=== PATIENT | male | born 1965 | race Caucasian/White ===

== ENCOUNTER 2017-08-31 14:40 | Observation (INO) | payer SELFPAY ==
[2017-08-31] MEDS ORDERED: Nitroglycerin 0.4 MG Tab.SL SL ONE (14:50)
[2017-08-31] MEDS ORDERED: Sodium Chloride 0.9% 2.5 ML Syringe FLUSH PRN (14:50)
[2017-08-31] MEDS ORDERED: Aspirin 81 MG Tab.Chew PO ONE (14:50)
[2017-08-31] MEDS ORDERED: Sodium Chloride 0.9% 10 ML Syringe FLUSH PRN (14:50)
[2017-08-31] MEDS ORDERED: Morphine 2 MG/ML Syringe IVPUSH ONE ×2 (14:52→16:16)
--- NOTE | 2017-08-31 14:55 | EDM.PDOC ---
ED HPI GENERAL MEDICAL PROBLEM - General Chief Complaint: Chest Pain Stated Complaint: CHEST PAIN Time Seen by Provider: 08/31/17 14:43 - History of Present Illness INITIAL COMMENTS - FREE TEXT/NARRATIVE: HISTORY AND PHYSICAL: History of present illness: Patient is a 52-year-old male who follows in our clinic with the nurse practitioner who he has seen about 6 months ago and has a history of borderline diabetes as well as obesity and sleep apnea an admission in May 2016 for atypical chest pain and presents with complaints of epigastric pain/lower midsternal pain that radiates to his right upper quadrant and his back that started about 3:57 AM this morning. The patient ate a sausage for dinner last night and went to bed and was having a perfectly normal evening. He says he tossed and turned through the night because of some discomfort but the pain woke him from sleep at about 3:57 AM. He had no fevers chills shortness of breath nausea or vomiting. Patient says he does have a history of his "gallbladder being shot". After his admission in May 2016 for chest pain he did not follow-up with a stress test. He says his last stress test was about 8 years ago and it was normal. He has no leg pain or swelling. He last ate today about 6 hours ago, only a muffin. The patient smokes a cigarettes and denies drug use and has no family history of cardiac disease. He currently takes no prescription medications. He has no leg pain or swelling. He currently does not feel short of breath and he describes his discomfort as a deep aching pain it is not burning in character. Patient also adds to nursing later that he is in remission from his rheumatoid arthritis. Review of systems: As per history of present illness and below otherwise all systems reviewed and negative. Past medical history: As per history of present illness and as reviewed below otherwise noncontributory. Surgical history: As per history of present illness and as reviewed below otherwise noncontributory. Social history: No reported history of drug or alcohol abuse. Family history: As per history of present illness and as reviewed below otherwise noncontributory. Physical exam: General: Well-developed well-nourished man who is nontoxic and morbidly obese. He looks comfortable in the ED and is not diaphoretic. Vital signs are noted by me HEENT: Atraumatic, normocephalic, pupils reactive, negative for conjunctival pallor or scleral icterus, mucous membranes moist, throat clear, neck supple, nontender, trachea midline. Lungs: Clear to auscultation, breath sounds equal bilaterally, chest nontender. Heart: S1S2, regular, negative for clicks, rubs, or JVD. Abdomen: Soft, nondistended, patient has tenderness on palpation in the epigastrium and the right upper quadrant which mimics his pain. There is no rebound or guarding. L sounds are hypoactive Negative for masses or hepatosplenomegaly. Pelvis: Stable nontender. Genitourinary: Deferred. Rectal: Deferred. Extremities: Atraumatic, negative for cords or calf pain. Neurovascular unremarkable. No pedal edema Neuro: Awake, alert, oriented. Cranial nerves II through XII unremarkable. Cerebellum unremarkable. Motor and sensory unremarkable throughout. Exam nonfocal. Diagnostics: EKG chest x-ray CBC CMP amylase lipase INR troponin abdominal ultrasound H pylori Therapeutics: IV O2 monitor nitroglycerin 1 aspirin morphine Zosyn The patient is aware of all testing results and that we will proceed to do a CT scan of the abdomen and pelvis. The case was discussed with Dr. Coyne at 1630 3 PM and he has done a colonoscopy on this patient in the past. Dr. Coyne recommends a CT scan to be done and he will swing by after his clinic and evaluate the patient. The patient is aware of the elevated white blood cell count and the H. pylori positive status. 1820: Dr. Coyne had seen and evaluated the patient earlier and the CT scan results were relayed to him at this time. He is unclear as to what is causing the patient's pain and leukocytosis and he would like the hospitalist to admit and we will give a dose of Zosyn and he will be on consult to see how the patient progresses over the next 12-24 hours. I discussed this care plan with the patient. I will also discuss this with the hospitalist for admission 1825: Case was discussed with Dr. Guadalupe our hospitalist who agrees to observation admission and is aware of the care plan. Impression: Epigastric pain/right upper quadrant pain with leukocytosis etiology unclear, rule out acalculus cholecystitis; H. pylori positive Definitive disposition and diagnosis as appropriate pending reevaluation and review of above. Middle Chest Pain Score (Numeric/FACES): 10 - Related Data Allergies Allergy/AdvReac Type Severity Reaction Status Date / Time Latex, Natural Rubber Allergy Swelling Verified 08/31/17 14:59 minocycline Allergy tinnitus Verified 08/31/17 14:59 Home Meds: Home Meds Allopurinol [Zyloprim] 300 mg PO DAILY 07/26/14 [History] Aspirin [Children's Aspirin] 2 tab PO DAILY 07/26/14 [History] Naproxen Sodium [Aleve] 220 mg PO ASDIRECTED PRN 07/26/14 [History] DULoxetine [Cymbalta] 60 mg PO DAILY 08/31/17 [History] buPROPion [buPROPion XL] 150 mg PO DAILY 08/31/17 [History] Past Medical History HEENT History: Reports: Other (See Below) Other HEENT History: 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 Denies: Blood Clots/VTE/DVT, CAD, Heart Failure, High Cholesterol, Hypertension, CT Respiratory History: Reports: Sleep Apnea Other Respiratory History: Former smoker, Sleep Apnea with machine Gastrointestinal History: Reports: Colon Polyp Genitourinary History: Reports: None. Denies: Acute Renal Failure, Chronic Renal Insuffiency Other Genitourinary History: Epididymitis, Left Musculoskeletal History: Reports: Fracture, Gout, RA Other Musculoskeletal History: "hx: fracture wrist as a kid" Neurological History: Reports: None. Denies: CVA, MS, TIA Psychiatric History: Reports: Anxiety Endocrine/Metabolic History: Reports: Diabetes, Type II, Obesity/BMI 30+ Other Endocrine/Metabolic History: borderline DM Hematologic History: Reports: None Immunologic History: Reports: None Oncologic (Cancer) History: Reports: None Dermatologic History: Reports: Other (See Below) Other Dermatologic History: Current hx: ring worm Right Thigh, topical treatment - Infectious Disease History Infectious Disease History: Reports: None - Past Surgical History Head Surgeries/Procedures: Reports: None GI Surgical History: Reports: Colonoscopy Social & Family History - Family History Family Medical History: Noncontributory HEENT: Reports: Impaired Vision Musculoskeletal: Reports: Arthritis Psychiatric: Reports: Anxiety, Depression Oncologic: Reports: Breast, Colon, Pancreatic - Caffeine Use Caffeine Use: Reports: Energy Drinks, Soda - Living Situation & Occupation Living situation: Reports: with Significant Other Occupation: Employed ED ROS GENERAL - Review of Systems Review Of Systems: ROS reveals no pertinent complaints other than HPI. ED EXAM, GENERAL - Physical Exam Exam: See Below (See dictation) Course - Vital Signs Last Recorded V/S: Last Vital Signs Temp 36.7 C 08/31/17 14:44 Pulse 75 08/31/17 14:44 Resp 20 08/31/17 14:44 BP 190/102 H 08/31/17 15:01 Pulse Ox 98 08/31/17 14:44 - Orders/Labs/Meds Orders: Active Orders 24 hr Category Date Time Status Patient Status [ADT] Stat ADT 08/31/17 18:28 Ordered Cardiac Monitoring [RC] . DIRECTED Care 08/31/17 14:49 Active EKG Documentation Completion [RC] STAT Care 08/31/17 14:49 Active Notify Provider Consults [RC] ASDIRECTED Care 08/31/17 18:22 Ordered Oxygen Therapy, ED [RC] ASDIRECTED Care 08/31/17 14:49 Active Pulse Oximetry [RC] ASDIRECTED Care 08/31/17 14:49 Active Consult to Physician [CONS] Stat Cons 08/31/17 18:22 Ordered Abdomen Pelvis w Cont [CT] Stat Exams 08/31/17 16:35 Taken Lactated Ringers @ 150 MLS/HR(1,000ml) Med 08/31/17 18:30 Ordered Lactated Ringers [Ringers, Lactated] 1,000 ml IV ASDIRECTED Piperacillin/Tazobactam [Piperacil-Tazobact] 4.5 gm Med 08/31/17 18:21 Ordered Sodium Chloride 0.9% [Normal Saline] 100 ml IV ONETIME Sodium Chloride 0.9% [Saline Flush] Med 08/31/17 14:50 Active 10 ml FLUSH ASDIRECTED PRN Sodium Chloride 0.9% [Saline Flush] Med 08/31/17 14:50 Active 2.5 ml FLUSH ASDIRECTED PRN Saline Lock Insert [OM.PC] Stat Oth 08/31/17 14:49 Ordered Medication Orders Piperacillin Sod/Tazobactam (Sod 4.5 gm/ Sodium Chloride) 100 mls @ 100 mls/hr IV ONETIME ONE Stop: 08/31/17 19:20 Lactated Ringer's (Ringers, Lactated) 1,000 mls @ 150 mls/hr IV ASDIRECTED JANELL Sodium Chloride (Saline Flush) 10 ml FLUSH ASDIRECTED PRN PRN Reason: Keep Vein Open Last Admin: 08/31/17 15:00 Dose: 10 ml Sodium Chloride (Saline Flush) 2.5 ml FLUSH ASDIRECTED PRN PRN Reason: Keep Vein Open Last Admin: 08/31/17 15:00 Dose: 2.5 ml Labs: Laboratory Tests 08/31/17 08/31/17 08/31/17 Range/Units 14:55 14:55 14:55 WBC 18.93 H (4.0-11.0) K/uL RBC 5.83 (4.50-5.90) M/uL Hgb 13.2 (13.0-17.0) g/dL Hct 41.8 (38.0-50.0) % MCV 71.7 L (80.0-98.0) fL MCH 22.6 L (27.0-32.0) pg MCHC 31.6 (31.0-37.0) g/dL RDW Std Deviation 44.0 (28.0-62.0) fl RDW Coeff of Javier 17 H (11.0-15.0) % Plt Count 365 (150-400) K/uL MPV 10.60 (7.40-12.00) fL Neut % (Auto) 83.2 H (48.0-80.0) % Lymph % (Auto) 10.2 L (16.0-40.0) % [place] % (Auto) 4.9 (0.0-15.0) % Eos % (Auto) 1.5 (0.0-7.0) % Baso % (Auto) 0.2 (0.0-1.5) % Neut # (Auto) 15.7 H (1.4-5.7) K/uL Lymph # (Auto) 1.9 (0.6-2.4) K/uL [place] # (Auto) 0.9 H (0.0-0.8) K/uL Eos # (Auto) 0.3 (0.0-0.7) K/uL Baso # (Auto) 0.0 (0.0-0.1) K/uL Nucleated RBC % 0.0 /100WBC Nucleated RBCs # 0 K/uL INR 1.01 Sodium 137 (136-148) mmol/L Potassium 4.2 (3.5-5.1) mmol/L Chloride 101 (98-107) mmol/L Carbon Dioxide 25.6 (21.0-32.0) mmol/L BUN 13 (7.0-18.0) mg/dL Creatinine 1.4 H (0.8-1.3) mg/dL Est Cr Clr Drug Dosing 73.39 mL/min Estimated GFR (MDRD) 53.6 ml/min Glucose 172 H (74-106) mg/dL Calcium 9.2 (8.5-10.1) mg/dL Total Bilirubin 0.4 (0.2-1.0) mg/dL AST 33 (15-37) IU/L ALT 53 (14-63) IU/L Alkaline Phosphatase 106 (46-116) U/L Troponin I < 0.050 (0.000-0.056) ng/mL Total Protein 7.7 (6.4-8.2) g/dL Albumin 3.5 (3.4-5.0) g/dL Globulin 4.2 H (2.0-3.5) g/dL Albumin/Globulin Ratio 0.8 L (1.3-2.8) Amylase 42 (25-115) U/L Lipase 145 (73-393) U/L H. pylori IgG Antibody (NEG) 08/31/17 Range/Units 14:55 WBC (4.0-11.0) K/uL RBC (4.50-5.90) M/uL Hgb (13.0-17.0) g/dL Hct (38.0-50.0) % MCV (80.0-98.0) fL MCH (27.0-32.0) pg MCHC (31.0-37.0) g/dL RDW Std Deviation (28.0-62.0) fl RDW Coeff of Javier (11.0-15.0) % Plt Count (150-400) K/uL MPV (7.40-12.00) fL Neut % (Auto) (48.0-80.0) % Lymph % (Auto) (16.0-40.0) % [place] % (Auto) (0.0-15.0) % Eos % (Auto) (0.0-7.0) % Baso % (Auto) (0.0-1.5) % Neut # (Auto) (1.4-5.7) K/uL Lymph # (Auto) (0.6-2.4) K/uL [place] # (Auto) (0.0-0.8) K/uL Eos # (Auto) (0.0-0.7) K/uL Baso # (Auto) (0.0-0.1) K/uL Nucleated RBC % /100WBC Nucleated RBCs # K/uL INR Sodium (136-148) mmol/L Potassium (3.5-5.1) mmol/L Chloride (98-107) mmol/L Carbon Dioxide (21.0-32.0) mmol/L BUN (7.0-18.0) mg/dL Creatinine (0.8-1.3) mg/dL Est Cr Clr Drug Dosing mL/min Estimated GFR (MDRD) ml/min Glucose (74-106) mg/dL Calcium (8.5-10.1) mg/dL Total Bilirubin (0.2-1.0) mg/dL AST (15-37) IU/L ALT (14-63) IU/L Alkaline Phosphatase (46-116) U/L Troponin I (0.000-0.056) ng/mL Total Protein (6.4-8.2) g/dL Albumin (3.4-5.0) g/dL Globulin (2.0-3.5) g/dL Albumin/Globulin Ratio (1.3-2.8) Amylase (25-115) U/L Lipase (73-393) U/L H. pylori IgG Antibody POSITIVE H (NEG) Meds: Medications Generic Name Dose Route Start Last Admin Trade Name Freq PRN Reason Stop Dose Admin Piperacillin Sod/Tazobactam 100 mls @ 100 mls/hr 08/31/17 18:21 Sod 4.5 gm/ Sodium Chloride IV 08/31/17 19:20 ONETIME ONE Lactated Ringer's 1,000 mls @ 150 mls/hr 08/31/17 18:30 Ringers, Lactated IV ASDIRECTED JANELL Sodium Chloride 10 ml 08/31/17 14:50 08/31/17 15:00 Saline Flush FLUSH 10 ml ASDIRECTED PRN Administration Keep Vein Open Sodium Chloride 2.5 ml 08/31/17 14:50 08/31/17 15:00 Saline Flush FLUSH 2.5 ml ASDIRECTED PRN Administration Keep Vein Open Discontinued Medications Generic Name Dose Route Start Last Admin Trade Name Freq PRN Reason Stop Dose Admin Aspirin 324 mg 08/31/17 14:50 08/31/17 15:00 Aspirin PO 08/31/17 14:51 324 mg ONETIME ONE Administration Iopamidol 75 ml 08/31/17 17:48 08/31/17 17:49 Isovue Multipack-370 (76%) IVPUSH 08/31/17 17:49 75 ml ONETIME STA Administration Morphine Sulfate 4 mg 08/31/17 14:52 08/31/17 15:02 Morphine IVPUSH 08/31/17 14:53 4 mg ONETIME ONE Administration Morphine Sulfate 4 mg 08/31/17 16:16 08/31/17 16:31 Morphine IVPUSH 08/31/17 16:17 4 mg ONETIME ONE Administration Morphine Sulfate Confirm 08/31/17 16:30 Morphine Administered 08/31/17 16:31 Dose 2 mg .ROUTE .STK-MED ONE Nitroglycerin 0.4 mg 08/31/17 14:50 08/31/17 15:01 Nitrostat SL 08/31/17 14:51 0.4 mg ONETIME ONE Administration Departure - Departure Time of Disposition: 18:29 Disposition: Home, Self-Care 01 Condition: Good Clinical Impression: Epigastric abdominal pain Leukocytosis Qualifiers: Leukocytosis type: unspecified Qualified Code(s): D72.829 - Elevated white blood cell count, unspecified - Discharge Information Referrals: PCP,None [Primary Care Provider] - Forms: ED Department Discharge - My Orders Last 24 Hours: My Active Orders 08/31/17 14:49 Cardiac Monitoring [RC] . DIRECTED EKG Documentation Completion [RC] STAT Oxygen Therapy, ED [RC] ASDIRECTED Pulse Oximetry [RC] ASDIRECTED Saline Lock Insert [OM.PC] Stat 08/31/17 14:50 Sodium Chloride 0.9% [Saline Flush] 10 ml FLUSH ASDIRECTED PRN Sodium Chloride 0.9% [Saline Flush] 2.5 ml FLUSH ASDIRECTED PRN 08/31/17 16:35 Abdomen Pelvis w Cont [CT] Stat 08/31/17 18:21 Piperacillin/Tazobactam [Piperacil-Tazobact] 4.5 gm Sodium Chloride 0.9% [ Normal Saline] 100 ml IV ONETIME 08/31/17 18:22 Notify Provider Consults [RC] ASDIRECTED Consult to Physician [CONS] Stat 08/31/17 18:28 Patient Status [ADT] Stat 08/31/17 18:30 Lactated Ringers @ 150 MLS/HR(1,000ml) Lactated Ringers [Ringers, Lactated] 1, 000 ml IV ASDIRECTED - Assessment/Plan Last 24 Hours: My Active Orders 08/31/17 14:49 Cardiac Monitoring [RC] . DIRECTED EKG Documentation Completion [RC] STAT Oxygen Therapy, ED [RC] ASDIRECTED Pulse Oximetry [RC] ASDIRECTED Saline Lock Insert [OM.PC] Stat 08/31/17 14:50 Sodium Chloride 0.9% [Saline Flush] 10 ml FLUSH ASDIRECTED PRN Sodium Chloride 0.9% [Saline Flush] 2.5 ml FLUSH ASDIRECTED PRN 08/31/17 16:35 Abdomen Pelvis w Cont [CT] Stat 08/31/17 18:21 Piperacillin/Tazobactam [Piperacil-Tazobact] 4.5 gm Sodium Chloride 0.9% [ Normal Saline] 100 ml IV ONETIME 08/31/17 18:22 Notify Provider Consults [RC] ASDIRECTED Consult to Physician [CONS] Stat 08/31/17 18:28 Patient Status [ADT] Stat 08/31/17 18:30 Lactated Ringers @ 150 MLS/HR(1,000ml) Lactated Ringers [Ringers, Lactated] 1, 000 ml IV ASDIRECTED
[2017-08-31 15:28] LABS: CHLORIDE,CL 101 mmol/L (98-107); SODIUM,NA 137 mmol/L (136-148)
--- NOTE | 2017-08-31 15:45 | CR ---
EXAMINATION: Two-view chest (PA and Lateral views). HISTORY: Shortness of breath. FINDINGS: The trachea is midline. The cardiomediastinal silhouette is within normal limits. No pulmonary infilt rates, effusions or pneumothorax. Osseous structures appear unremarkable. IMPRESSION: No acute cardiopulmonary process.
--- NOTE | 2017-08-31 16:17 | US ---
EXAMINATION: Right upper quadrant ultrasound HISTORY: Pain COMPARISON: 05/20/2016 TECHNIQUE: Grayscale and color Doppler imaging obtained of the right upper quadrant. FINDINGS: The pancreas is not optimally characterized however otherwise unremarkable. The liver has i ncreased in echotexture without a focal hepatic mass. Gallbladder wall thickness is normal. No perich olecystic fluid or shadowing gallstones. Common bile duct measures 4 mm. The right kidney measures 12 cm [id number] without evidence of hydronephrosis. IMPRESSION: 1. Fatty infiltration of the liver.
[2017-08-31] MEDS ORDERED: Morphine 2 MG/ML Syringe ONE (16:30)
[2017-08-31] MEDS ORDERED: Iopamidol 755 MG/ML 500 ML Multipack Bottle IVPUSH STA (17:48)
[2017-08-31] MEDS ORDERED: Piperacillin/Tazobactam 4.5 GM in Sodium Chloride 0.9% 100 ML IV ONE (18:21)
[2017-08-31] MEDS ORDERED: HYDROmorphone 1 MG/ML Syringe IVPUSH ONE (18:40)
[2017-08-31] MEDS: Lactated Ringers 1,000 ML IV SCH (18:46)
[2017-08-31] MEDS: HYDROmorphone 1 MG/ML Syringe IVPUSH PRN (20:28)
--- NOTE | 2017-08-31 21:07 | PCM.CONS ---
H&P History of Present Illness - General Date of Service: 08/31/17 Admit Problem/Dx: Admission Diagnosis/Problem Admission Diagnosis/Problem Abdominal pain Source of Information: Patient, Significant Other History Limitations: Reports: No Limitations - History of Present Illness Onset of Symptoms: Reports: Today Duration of Symptoms: Reports: Hour(s):, Getting Worse, Recurring Location: Reports: Abdomen Quality: Reports: Same as Previous Episode Severity: Moderate Improves with: Reports: Rest Worsens with: Reports: Movement Context: Reports: Sick Contact, Exertion Associated Symptoms: Reports: Loss of Appetite. Denies: Confusion, Cough, Fever /Chills, Nausea/Vomiting Middle Chest Pain Score (Numeric/FACES): 3 - Related Data Allergies/Adverse Reactions: Allergies Allergy/AdvReac Type Severity Reaction Status Date / Time Latex, Natural Rubber Allergy Swelling Verified 08/31/17 14:59 minocycline Allergy tinnitus Verified 08/31/17 14:59 Home Medications: Home Meds Allopurinol [Zyloprim] 300 mg PO DAILY 07/26/14 [History] Aspirin [Children's Aspirin] 2 tab PO DAILY 07/26/14 [History] Naproxen Sodium [Aleve] 220 mg PO ASDIRECTED PRN 07/26/14 [History] DULoxetine [Cymbalta] 60 mg PO DAILY 08/31/17 [History] buPROPion [buPROPion XL] 150 mg PO DAILY 08/31/17 [History] Past Medical History HEENT History: Reports: Other (See Below) Other HEENT History: 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 Cardiovascular History: Reports: None Respiratory History: Reports: Sleep Apnea Other Respiratory History: Former smoker, Sleep Apnea with machine Gastrointestinal History: Reports: Colon Polyp Genitourinary History: Reports: None Other Genitourinary History: Epididymitis, Left Musculoskeletal History: Reports: Fracture, Gout, RA Other Musculoskeletal History: "hx: fracture wrist as a kid" Neurological History: Reports: None Psychiatric History: Reports: Anxiety, Depression Endocrine/Metabolic History: Reports: Diabetes, Type II, Obesity/BMI 30+ Other Endocrine/Metabolic History: borderline DM-- diet control Hematologic History: Reports: None Immunologic History: Reports: None Oncologic (Cancer) History: Reports: None Dermatologic History: Reports: Other (See Below) Other Dermatologic History: Current hx: ring worm Right Thigh, topical treatment - Infectious Disease History Infectious Disease History: Reports: None - Past Surgical History Head Surgeries/Procedures: Reports: None Respiratory Surgical History: Reports: None GI Surgical History: Reports: Colonoscopy, Other (See Below) Other GI Surgeries/Procedures: colonoscopy done 2016 Musculoskeletal Surgical History: Reports: None Social & Family History - Family History Family Medical History: Noncontributory HEENT: Reports: Impaired Vision Musculoskeletal: Reports: Arthritis Psychiatric: Reports: Anxiety, Depression Oncologic: Reports: Breast, Colon, Pancreatic - Tobacco Use Smoking Status *Q: Former Smoker Years of Tobacco use: 11 Packs/Tins Daily: 1 Used Tobacco, but Quit: Yes Month/Year Tobacco Last Used: 2015 Tobacco Use Comment: still uses E cigarettes after quitting smoking 3 years ago Second Hand Smoke Exposure: No - Caffeine Use Caffeine Use: Reports: Energy Drinks, Soda Other Caffeine Use: 3 monster energy drinks per day - Alcohol Use Days Per Week of Alcohol Use: 0 - Recreational Drug Use Recreational Drug Use: No - Living Situation & Occupation Living situation: Reports: with Significant Other Occupation: Employed H&P Review of Systems - Review of Systems: Review Of Systems: See Below General: Denies: Fever, Chills HEENT: Denies: Headaches, Hearing Changes, Visual Changes Pulmonary: Denies: Shortness of Breath, Wheezing, Pleuritic Chest Pain, Cough Cardiovascular: Denies: Chest Pain, Palpitations, Dyspnea on Exertion Gastrointestinal: Reports: Abdominal Pain, Anorexia, Diarrhea, Decreased Appetite, Flatus, Nausea. Denies: Black Stool, Bloody Stool, Constipation, Difficulty Swallowing, Distension, Hematemesis, Hematochezia, Melena Genitourinary: Denies: Dysuria, Frequency, Burning Musculoskeletal: Reports: No Symptoms Skin: Denies: Cyanosis, Jaundice Psychiatric: Denies: Confusion, Depression, Anxiety, Agitation Neurological: Reports: No Symptoms Hematologic/Lymphatic: Reports: No Symptoms Immunologic: Reports: No Symptoms Exam - Exam Exam: See Below - Vital Signs Vital Signs: Last Vital Signs Temp 97 F 08/31/17 19:33 Pulse 74 08/31/17 19:33 Resp 18 08/31/17 19:33 BP 137/64 08/31/17 19:33 Pulse Ox 98 08/31/17 19:33 Weight: 383 lb 14.4 oz - Exam General: Alert, Oriented, Moderate Distress HEENT: Conjunctiva Clear, Nares Patent, Pupils Equal, Pupils Reactive. No: Scleral Icterus Neck: Supple, Trachea Midline Lungs: Clear to Auscultation, Normal Respiratory Effort Cardiovascular: Regular Rate, Regular Rhythm, Normal S1, Normal S2. No: Tachycardia, Systolic Murmur, Diastolic Murmur GI/Abdominal Exam: Normal Bowel Sounds, Soft, No Distention, No Mass, Tender. No: Guarding, Rigid, Rebound, Hernia, Mass, Hepatomegaly, Splenomegaly (Male) Exam: No Hernia Rectal (Males) Exam: Deferred Back Exam: Normal Inspection, Other Extremities: Normal Inspection, Normal Range of Motion. No: Malcolm's Sign Peripheral Pulses: 4+: Posterior Tibial (L), Posterior Tibial (R), Dorsalis Pedis (L), Dorsalis Pedis (R) Skin: Warm, Dry, Intact. No: Rash, Petechia, Ecchymosis, Wound, Incision, Decubitis Neurological: Cranial Nerves Intact Neuro Extensive - Mental Status: Alert, Oriented x3, Normal Mood/Affect, Normal Cognition Psychiatric: Alert, Normal Affect, Normal Mood - Patient Data Lab Results Last 24 hrs: Laboratory Results - last 24 hr 08/31/17 08/31/17 08/31/17 Range/Units 14:55 14:55 14:55 WBC 18.93 H (4.0-11.0) K/uL RBC 5.83 (4.50-5.90) M/uL Hgb 13.2 (13.0-17.0) g/dL Hct 41.8 (38.0-50.0) % MCV 71.7 L (80.0-98.0) fL MCH 22.6 L (27.0-32.0) pg MCHC 31.6 (31.0-37.0) g/dL RDW Std Deviation 44.0 (28.0-62.0) fl RDW Coeff of Javier 17 H (11.0-15.0) % Plt Count 365 (150-400) K/uL MPV 10.60 (7.40-12.00) fL Neut % (Auto) 83.2 H (48.0-80.0) % Lymph % (Auto) 10.2 L (16.0-40.0) % Garrett % (Auto) 4.9 (0.0-15.0) % Eos % (Auto) 1.5 (0.0-7.0) % Baso % (Auto) 0.2 (0.0-1.5) % Neut # (Auto) 15.7 H (1.4-5.7) K/uL Lymph # (Auto) 1.9 (0.6-2.4) K/uL Garrett # (Auto) 0.9 H (0.0-0.8) K/uL Eos # (Auto) 0.3 (0.0-0.7) K/uL Baso # (Auto) 0.0 (0.0-0.1) K/uL Nucleated RBC % 0.0 /100WBC Nucleated RBCs # 0 K/uL INR 1.01 Sodium 137 (136-148) mmol/L Potassium 4.2 (3.5-5.1) mmol/L Chloride 101 (98-107) mmol/L Carbon Dioxide 25.6 (21.0-32.0) mmol/L BUN 13 (7.0-18.0) mg/dL Creatinine 1.4 H (0.8-1.3) mg/dL Est Cr Clr Drug Dosing 73.39 mL/min Estimated GFR (MDRD) 53.6 ml/min Glucose 172 H (74-106) mg/dL Calcium 9.2 (8.5-10.1) mg/dL Total Bilirubin 0.4 (0.2-1.0) mg/dL AST 33 (15-37) IU/L ALT 53 (14-63) IU/L Alkaline Phosphatase 106 (46-116) U/L Troponin I < 0.050 (0.000-0.056) ng/mL Total Protein 7.7 (6.4-8.2) g/dL Albumin 3.5 (3.4-5.0) g/dL Globulin 4.2 H (2.0-3.5) g/dL Albumin/Globulin Ratio 0.8 L (1.3-2.8) Amylase 42 (25-115) U/L Lipase 145 (73-393) U/L H. pylori IgG Antibody (NEG) 08/31/17 Range/Units 14:55 WBC (4.0-11.0) K/uL RBC (4.50-5.90) M/uL Hgb (13.0-17.0) g/dL Hct (38.0-50.0) % MCV (80.0-98.0) fL MCH (27.0-32.0) pg MCHC (31.0-37.0) g/dL RDW Std Deviation (28.0-62.0) fl RDW Coeff of Javier (11.0-15.0) % Plt Count (150-400) K/uL MPV (7.40-12.00) fL Neut % (Auto) (48.0-80.0) % Lymph % (Auto) (16.0-40.0) % Garrett % (Auto) (0.0-15.0) % Eos % (Auto) (0.0-7.0) % Baso % (Auto) (0.0-1.5) % Neut # (Auto) (1.4-5.7) K/uL Lymph # (Auto) (0.6-2.4) K/uL Garrett # (Auto) (0.0-0.8) K/uL Eos # (Auto) (0.0-0.7) K/uL Baso # (Auto) (0.0-0.1) K/uL Nucleated RBC % /100WBC Nucleated RBCs # K/uL INR Sodium (136-148) mmol/L Potassium (3.5-5.1) mmol/L Chloride (98-107) mmol/L Carbon Dioxide (21.0-32.0) mmol/L BUN (7.0-18.0) mg/dL Creatinine (0.8-1.3) mg/dL Est Cr Clr Drug Dosing mL/min Estimated GFR (MDRD) ml/min Glucose (74-106) mg/dL Calcium (8.5-10.1) mg/dL Total Bilirubin (0.2-1.0) mg/dL AST (15-37) IU/L ALT (14-63) IU/L Alkaline Phosphatase (46-116) U/L Troponin I (0.000-0.056) ng/mL Total Protein (6.4-8.2) g/dL Albumin (3.4-5.0) g/dL Globulin (2.0-3.5) g/dL Albumin/Globulin Ratio (1.3-2.8) Amylase (25-115) U/L Lipase (73-393) U/L H. pylori IgG Antibody POSITIVE H (NEG) Result Diagrams: 08/31/17 14:55 08/31/17 14:55 Consult PN Assessment/Plan Procedures: Procedures ASSAY OF AMYLASE (05/20/16) ASSAY OF BLOOD/URIC ACID (02/08/17) ASSAY OF CK (CPK) (05/20/16) ASSAY OF LIPASE (05/20/16) ASSAY OF TROPONIN QUANT (05/20/16) C-REACTIVE PROTEIN (05/11/14) CHEST X-RAY 1 VIEW FRONTAL (05/20/16) COMPLETE CBC W/AUTO DIFF WBC (05/20/16) COMPREHEN METABOLIC PANEL (02/08/17) CREATINE MB FRACTION (05/20/16) CT HEAD/BRAIN W/O DYE (07/26/14) DIAGNOSTIC COLONOSCOPY (11/21/15) ELECTROCARDIOGRAM TRACING (05/20/16) EMERGENCY DEPT VISIT (05/20/16) EMERGENCY DEPT VISIT (07/26/14) GLYCOSYLATED HEMOGLOBIN TEST (02/08/17) HEPATOBILIARY SYSTEM IMAGING (05/22/16) LIPID PANEL (02/08/17) MEDICAL NUTRITION INDIV IN (05/20/16) RBC SED RATE AUTOMATED (05/11/14) ROUTINE VENIPUNCTURE (02/08/17) THER/PROPH/DIAG INJ IV PUSH (05/20/16) THER/PROPH/DIAG INJ SC/IM (05/20/16) TX/PRO/DX INJ NEW DRUG ADDON (05/20/16) UR ALBUMIN SEMIQUANTITATIVE (11/26/15) URINALYSIS AUTO W/SCOPE (02/08/17) URINE CULTURE/COLONY COUNT (02/08/17) US EXAM ABDOM COMPLETE (05/20/16) US EXAM SCROTUM (01/30/15) VASCULAR STUDY (01/30/15) (1) Acute acalculous cholecystitis SNOMED Code(s): 74779156 Code(s): K81.0 - ACUTE CHOLECYSTITIS Priority: High Current Visit: Yes (2) Epigastric abdominal pain SNOMED Code(s): 60870028 Code(s): R10.13 - EPIGASTRIC PAIN Priority: High Current Visit: Yes (3) Leukocytosis SNOMED Code(s): 123746295, 031160267 Code(s): D72.829 - ELEVATED WHITE BLOOD CELL COUNT, UNSPECIFIED Priority: High Current Visit: Yes Qualifiers: Leukocytosis type: unspecified Qualified Code(s): D72.829 - Elevated white blood cell count, unspecified (4) Atypical chest pain SNOMED Code(s): 376870114 Code(s): R07.89 - OTHER CHEST PAIN Priority: Medium Current Visit: Yes (5) RUQ abdominal pain SNOMED Code(s): 728059430 Code(s): R10.11 - RIGHT UPPER QUADRANT PAIN Priority: Medium Current Visit: Yes (6) Borderline diabetes mellitus SNOMED Code(s): 557961883 Code(s): R73.03 - PREDIABETES Priority: Medium Current Visit: Yes (7) Obesity, morbid, BMI 40.0-49.9 SNOMED Code(s): 314065458, 484220530 Code(s): E66.01 - MORBID (SEVERE) OBESITY DUE TO EXCESS CALORIES Priority: Medium Current Visit: Yes Problem List Initiated/Reviewed/Updated: Yes Plan: The GBUS did not reveal any acute inflammatory changes around the gallbladder despite his leucocytosis. Interestingly, the CT scan was read as acute cholecystitis. Patient has had negative ultrasounds in the past. He says he was told his gallbladder is not functioning--I think he had a CCK-HIDA in the past. His body mass index is too high to safely consider surgery here--our instruments are not bariatric length instruments. RECOMMEND: Treat with antibiotics and try to cool his gallbladder down in anticipation of a cholecystectomy in a few weeks. Again, given his BMI, I think he will need to be in a larger facility with bariatric capability with instruments, appropriate OR table and full ICU capability. I will continue to follow. Thank you.
[2017-08-31] MEDS ORDERED: Ondansetron 4 MG/2 ML SDV IVPUSH PRN (21:38)
--- NOTE | 2017-08-31 21:46 | PCM.HP ---
H&P History of Present Illness - General Admit Problem/Dx: Admission Diagnosis/Problem Admission Diagnosis/Problem Abdominal pain - History of Present Illness Initial Comments - Free Text/Narative: 52 yo male with pmh of DM, HEIDY and obesity who presents with one day history of epigastric pain. Patient denies any fever, nausea, or chest pain. PAtient denies any blood in the stool. PAtient reports having this pain about once a month usually after eating. He has had HIDA scans in the past which suggest chronic cholecystitis. Patient also has a history of gastric ulcers. CT scan performed today in ER shows stranding about the gallbladder. Abdominal ultrasound was normal. Middle Chest Pain Score (Numeric/FACES): 3 Upper Anterior Abdomen Pain Score (Numeric/FACES): 7 - Related Data Allergies/Adverse Reactions: Allergies Allergy/AdvReac Type Severity Reaction Status Date / Time Latex, Natural Rubber Allergy Swelling Verified 08/31/17 14:59 minocycline Allergy tinnitus Verified 08/31/17 14:59 Home Medications: Home Meds Allopurinol [Zyloprim] 300 mg PO DAILY 07/26/14 [History] Aspirin [Children's Aspirin] 2 tab PO DAILY 07/26/14 [History] Naproxen Sodium [Aleve] 220 mg PO ASDIRECTED PRN 07/26/14 [History] DULoxetine [Cymbalta] 60 mg PO DAILY 08/31/17 [History] buPROPion [buPROPion XL] 150 mg PO DAILY 08/31/17 [History] Past Medical History HEENT History: Reports: Other (See Below) Other HEENT History: 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 Cardiovascular History: Reports: None Respiratory History: Reports: Sleep Apnea Other Respiratory History: Former smoker, Sleep Apnea with machine Gastrointestinal History: Reports: Colon Polyp Genitourinary History: Reports: None Other Genitourinary History: Epididymitis, Left Musculoskeletal History: Reports: Fracture, Gout, RA Other Musculoskeletal History: "hx: fracture wrist as a kid" Neurological History: Reports: None Psychiatric History: Reports: Anxiety, Depression Endocrine/Metabolic History: Reports: Diabetes, Type II, Obesity/BMI 30+ Other Endocrine/Metabolic History: borderline DM-- diet control Hematologic History: Reports: None Immunologic History: Reports: None Oncologic (Cancer) History: Reports: None Dermatologic History: Reports: Other (See Below) Other Dermatologic History: Current hx: ring worm Right Thigh, topical treatment - Infectious Disease History Infectious Disease History: Reports: None - Past Surgical History Head Surgeries/Procedures: Reports: None Respiratory Surgical History: Reports: None GI Surgical History: Reports: Colonoscopy, Other (See Below) Other GI Surgeries/Procedures: colonoscopy done 2015 Musculoskeletal Surgical History: Reports: None Social & Family History - Family History Family Medical History: Noncontributory HEENT: Reports: Impaired Vision Musculoskeletal: Reports: Arthritis Psychiatric: Reports: Anxiety, Depression Oncologic: Reports: Breast, Colon, Pancreatic - Tobacco Use Smoking Status *Q: Former Smoker Years of Tobacco use: 11 Packs/Tins Daily: 1 Used Tobacco, but Quit: Yes Month/Year Tobacco Last Used: 2015 Tobacco Use Comment: still uses E cigarettes after quitting smoking 3 years ago Second Hand Smoke Exposure: No - Caffeine Use Caffeine Use: Reports: Energy Drinks, Soda Other Caffeine Use: 3 monster energy drinks per day - Alcohol Use Days Per Week of Alcohol Use: 0 - Recreational Drug Use Recreational Drug Use: No - Living Situation & Occupation Living situation: Reports: with Significant Other Occupation: Employed H&P Review of Systems - Review of Systems: Review Of Systems: ROS reveals no pertinent complaints other than HPI. Exam - Exam Exam: See Below - Vital Signs Vital Signs: Last Vital Signs Temp 36.1 C 08/31/17 19:33 Pulse 74 08/31/17 19:33 Resp 18 08/31/17 19:33 BP 137/64 08/31/17 19:33 Pulse Ox 98 08/31/17 19:33 Weight: 174.134 kg - Exam General: Alert, Oriented HEENT: Mucosa Moist & [place] Neck: Supple, Trachea Midline Lungs: Clear to Auscultation, Normal Respiratory Effort GI/Abdominal Exam: Normal Bowel Sounds, Soft, Non-Tender, No Organomegaly, No Distention, Other (obese) Extremities: Normal Inspection, Normal Range of Motion, Non-Tender, No Pedal Edema Skin: Warm, Dry, Intact Neurological: Cranial Nerves Intact. No: Focal Deficit - Patient Data Lab Results Last 24 hrs: Laboratory Results - last 24 hr 08/31/17 08/31/17 08/31/17 Range/Units 14:55 14:55 14:55 WBC 18.93 H (4.0-11.0) K/uL RBC 5.83 (4.50-5.90) M/uL Hgb 13.2 (13.0-17.0) g/dL Hct 41.8 (38.0-50.0) % MCV 71.7 L (80.0-98.0) fL MCH 22.6 L (27.0-32.0) pg MCHC 31.6 (31.0-37.0) g/dL RDW Std Deviation 44.0 (28.0-62.0) fl RDW Coeff of Javier 17 H (11.0-15.0) % Plt Count 365 (150-400) K/uL MPV 10.60 (7.40-12.00) fL Neut % (Auto) 83.2 H (48.0-80.0) % Lymph % (Auto) 10.2 L (16.0-40.0) % Rolette % (Auto) 4.9 (0.0-15.0) % Eos % (Auto) 1.5 (0.0-7.0) % Baso % (Auto) 0.2 (0.0-1.5) % Neut # (Auto) 15.7 H (1.4-5.7) K/uL Lymph # (Auto) 1.9 (0.6-2.4) K/uL Rolette # (Auto) 0.9 H (0.0-0.8) K/uL Eos # (Auto) 0.3 (0.0-0.7) K/uL Baso # (Auto) 0.0 (0.0-0.1) K/uL Nucleated RBC % 0.0 /100WBC Nucleated RBCs # 0 K/uL INR 1.01 Sodium 137 (136-148) mmol/L Potassium 4.2 (3.5-5.1) mmol/L Chloride 101 (98-107) mmol/L Carbon Dioxide 25.6 (21.0-32.0) mmol/L BUN 13 (7.0-18.0) mg/dL Creatinine 1.4 H (0.8-1.3) mg/dL Est Cr Clr Drug Dosing 73.39 mL/min Estimated GFR (MDRD) 53.6 ml/min Glucose 172 H (74-106) mg/dL Calcium 9.2 (8.5-10.1) mg/dL Total Bilirubin 0.4 (0.2-1.0) mg/dL AST 33 (15-37) IU/L ALT 53 (14-63) IU/L Alkaline Phosphatase 106 (46-116) U/L Troponin I < 0.050 (0.000-0.056) ng/mL Total Protein 7.7 (6.4-8.2) g/dL Albumin 3.5 (3.4-5.0) g/dL Globulin 4.2 H (2.0-3.5) g/dL Albumin/Globulin Ratio 0.8 L (1.3-2.8) Amylase 42 (25-115) U/L Lipase 145 (73-393) U/L H. pylori IgG Antibody (NEG) 08/31/17 Range/Units 14:55 WBC (4.0-11.0) K/uL RBC (4.50-5.90) M/uL Hgb (13.0-17.0) g/dL Hct (38.0-50.0) % MCV (80.0-98.0) fL MCH (27.0-32.0) pg MCHC (31.0-37.0) g/dL RDW Std Deviation (28.0-62.0) fl RDW Coeff of Javier (11.0-15.0) % Plt Count (150-400) K/uL MPV (7.40-12.00) fL Neut % (Auto) (48.0-80.0) % Lymph % (Auto) (16.0-40.0) % Rolette % (Auto) (0.0-15.0) % Eos % (Auto) (0.0-7.0) % Baso % (Auto) (0.0-1.5) % Neut # (Auto) (1.4-5.7) K/uL Lymph # (Auto) (0.6-2.4) K/uL Rolette # (Auto) (0.0-0.8) K/uL Eos # (Auto) (0.0-0.7) K/uL Baso # (Auto) (0.0-0.1) K/uL Nucleated RBC % /100WBC Nucleated RBCs # K/uL INR Sodium (136-148) mmol/L Potassium (3.5-5.1) mmol/L Chloride (98-107) mmol/L Carbon Dioxide (21.0-32.0) mmol/L BUN (7.0-18.0) mg/dL Creatinine (0.8-1.3) mg/dL Est Cr Clr Drug Dosing mL/min Estimated GFR (MDRD) ml/min Glucose (74-106) mg/dL Calcium (8.5-10.1) mg/dL Total Bilirubin (0.2-1.0) mg/dL AST (15-37) IU/L ALT (14-63) IU/L Alkaline Phosphatase (46-116) U/L Troponin I (0.000-0.056) ng/mL Total Protein (6.4-8.2) g/dL Albumin (3.4-5.0) g/dL Globulin (2.0-3.5) g/dL Albumin/Globulin Ratio (1.3-2.8) Amylase (25-115) U/L Lipase (73-393) U/L H. pylori IgG Antibody POSITIVE H (NEG) Result Diagrams: 08/31/17 14:55 08/31/17 14:55 Problem List Initiated/Reviewed/Updated: Yes Orders Last 24hrs: Active Orders 24 hr Category Date Time Status Patient Status [ADT] Stat ADT 08/31/17 18:28 Active Cardiac Monitoring [RC] . DIRECTED Care 08/31/17 14:49 Active EKG Documentation Completion [RC] STAT Care 08/31/17 14:49 Active Notify Provider Consults [RC] ASDIRECTED Care 08/31/17 18:22 Active Oxygen Therapy [RC] PRN Care 08/31/17 21:38 Ordered Oxygen Therapy, ED [RC] ASDIRECTED Care 08/31/17 14:49 Active Pulse Oximetry [RC] ASDIRECTED Care 08/31/17 14:49 Active Up ad Teri [RC] ASDIRECTED Care 08/31/17 21:38 Ordered VTE/DVT Education [RC] PER UNIT ROUTINE Care 08/31/17 21:38 Ordered Vital Signs [RC] Q4H Care 08/31/17 21:38 Ordered Consult to Physician [CONS] Stat Cons 08/31/17 18:22 Active Abdomen Pelvis w Cont [CT] Stat Exams 08/31/17 16:35 Taken CBC W/O DIFF,HEMOGRAM [HEME] AM Lab 09/01/17 05:11 Ordered COMPREHENSIVE METABOLIC PN,CMP [CHEM] AM Lab 09/01/17 05:11 Ordered TROPONIN I [CHEM] Q6H Lab 09/01/17 00:00 Ordered TROPONIN I [CHEM] Q6H Lab 09/01/17 06:00 Ordered HYDROmorphone [Dilaudid] Med 08/31/17 20:11 Active 1 mg IVPUSH Q2H PRN Lactated Ringers [Ringers, Lactated] 1,000 ml Med 08/31/17 18:30 Active IV ASDIRECTED Ondansetron [Zofran] Med 08/31/17 21:38 Ordered 4 mg IVPUSH Q4H PRN Pantoprazole [ProTONIX IV] Med 08/31/17 21:45 Ordered 40 mg IVPUSH Q24H Piperacillin/Tazobactam [Piperacil-Tazobact] 3.375 gm Med 09/01/17 00:01 Ordered Sodium Chloride 0.9% [Normal Saline] 50 ml IV Q6H Sodium Chloride 0.9% [Saline Flush] Med 08/31/17 14:50 Active 10 ml FLUSH ASDIRECTED PRN Sodium Chloride 0.9% [Saline Flush] Med 08/31/17 14:50 Active 2.5 ml FLUSH ASDIRECTED PRN Saline Lock Insert [OM.PC] Stat Oth 08/31/17 14:49 Ordered Sequential Compression Device [OM.PC] Per Unit Routine Oth 08/31/17 21:38 Ordered Resuscitation Status Routine Resus Stat 08/31/17 21:38 Ordered Medication Orders Hydromorphone HCl (Dilaudid) 1 mg IVPUSH Q2H PRN PRN Reason: Pain Last Admin: 08/31/17 20:28 Dose: 1 mg Lactated Ringer's (Ringers, Lactated) 1,000 mls @ 150 mls/hr IV ASDIRECTED JANELL Last Admin: 08/31/17 18:46 Dose: 150 mls/hr Piperacillin Sod/Tazobactam (Sod 3.375 gm/ Sodium Chloride) 50 mls @ 100 mls/ hr IV Q6H JANELL Ondansetron HCl (Zofran) 4 mg IVPUSH Q4H PRN PRN Reason: Nausea Pantoprazole Sodium (Protonix Iv) 40 mg IVPUSH Q24H JANELL Sodium Chloride (Saline Flush) 10 ml FLUSH ASDIRECTED PRN PRN Reason: Keep Vein Open Last Admin: 08/31/17 15:00 Dose: 10 ml Sodium Chloride (Saline Flush) 2.5 ml FLUSH ASDIRECTED PRN PRN Reason: Keep Vein Open Last Admin: 08/31/17 15:00 Dose: 2.5 ml Assessment/Plan Comment:: 52 yo male admitted with acute cholecystitis. We will treat zoysn and IV fluids. Dr. Coyne has been consulted. We will also place on PPI as gastric ulcer is on differential.
[2017-08-31] MEDS: Pantoprazole 40 MG Vial IVPUSH SCH (22:03)
[2017-09-01] MEDS: Piperacillin/Tazobactam 3.375 GM in Sodium Chloride 0.9% 50 ML IV SCH ×5 (00:16→23:49)
[2017-09-01] MEDS: HYDROmorphone 1 MG/ML Syringe IVPUSH PRN ×9 (00:19→22:40)
[2017-09-01] MEDS: Lactated Ringers 1,000 ML IV SCH ×4 (02:01→23:52)
--- NOTE | 2017-09-01 11:32 | PCM.CONSN ---
- General Info Date of Service: 09/01/17 Admission Dx/Problem (Free Text): Acalculous cholecystitis. Hx of gastric ulcers. Functional Status: Reports: Pain Controlled. Denies: New Symptoms - Review of Systems General: Reports: Appetite. Denies: Fever HEENT: Reports: No Symptoms Pulmonary: Denies: Shortness of Breath, Cough Cardiovascular: Denies: Chest Pain Gastrointestinal: Reports: Abdominal Pain. Denies: Diarrhea, Nausea, Vomiting Genitourinary: Denies: Dysuria, Frequency, Burning Musculoskeletal: Reports: No Symptoms Skin: Denies: Cyanosis, Jaundice Neurological: Denies: Confusion, Dizziness Psychiatric: Denies: Confusion, Depression, Anxiety - Patient Data Vitals - Most Recent: Last Vital Signs Temp 98.4 F 09/01/17 08:00 Pulse 87 09/01/17 08:00 Resp 20 09/01/17 08:00 BP 163/80 H 09/01/17 08:00 Pulse Ox 94 L 09/01/17 08:00 Weight - Most Recent: 383 lb 14.4 oz I&O - Last 24 Hours: Intake & Output 08/31/17 09/01/17 09/01/17 19:59 03:59 11:59 Intake Total 1050 Output Total 575 Balance 1050 -575 Lab Results Last 24 Hours: Laboratory Results - last 24 hr 08/31/17 08/31/17 08/31/17 Range/Units 14:55 14:55 14:55 WBC 18.93 H (4.0-11.0) K/uL RBC 5.83 (4.50-5.90) M/uL Hgb 13.2 (13.0-17.0) g/dL Hct 41.8 (38.0-50.0) % MCV 71.7 L (80.0-98.0) fL MCH 22.6 L (27.0-32.0) pg MCHC 31.6 (31.0-37.0) g/dL RDW Std Deviation 44.0 (28.0-62.0) fl RDW Coeff of Javier 17 H (11.0-15.0) % Plt Count 365 (150-400) K/uL MPV 10.60 (7.40-12.00) fL Neut % (Auto) 83.2 H (48.0-80.0) % Lymph % (Auto) 10.2 L (16.0-40.0) % [place] % (Auto) 4.9 (0.0-15.0) % Eos % (Auto) 1.5 (0.0-7.0) % Baso % (Auto) 0.2 (0.0-1.5) % Neut # (Auto) 15.7 H (1.4-5.7) K/uL Lymph # (Auto) 1.9 (0.6-2.4) K/uL [place] # (Auto) 0.9 H (0.0-0.8) K/uL Eos # (Auto) 0.3 (0.0-0.7) K/uL Baso # (Auto) 0.0 (0.0-0.1) K/uL Nucleated RBC % 0.0 /100WBC Nucleated RBCs # 0 K/uL INR 1.01 Sodium 137 (136-148) mmol/L Potassium 4.2 (3.5-5.1) mmol/L Chloride 101 (98-107) mmol/L Carbon Dioxide 25.6 (21.0-32.0) mmol/L BUN 13 (7.0-18.0) mg/dL Creatinine 1.4 H (0.8-1.3) mg/dL Est Cr Clr Drug Dosing 73.39 mL/min Estimated GFR (MDRD) 53.6 ml/min Glucose 172 H (74-106) mg/dL Calcium 9.2 (8.5-10.1) mg/dL Total Bilirubin 0.4 (0.2-1.0) mg/dL AST 33 (15-37) IU/L ALT 53 (14-63) IU/L Alkaline Phosphatase 106 (46-116) U/L Troponin I < 0.050 (0.000-0.056) ng/mL Total Protein 7.7 (6.4-8.2) g/dL Albumin 3.5 (3.4-5.0) g/dL Globulin 4.2 H (2.0-3.5) g/dL Albumin/Globulin Ratio 0.8 L (1.3-2.8) Amylase 42 (25-115) U/L Lipase 145 (73-393) U/L H. pylori IgG Antibody (NEG) 08/31/17 09/01/17 09/01/17 Range/Units 14:55 00:19 05:27 WBC 23.32 H (4.0-11.0) K/uL RBC 5.75 (4.50-5.90) M/uL Hgb 12.9 L (13.0-17.0) g/dL Hct 41.7 (38.0-50.0) % MCV 72.5 L (80.0-98.0) fL MCH 22.4 L (27.0-32.0) pg MCHC 30.9 L (31.0-37.0) g/dL RDW Std Deviation 44.5 (28.0-62.0) fl RDW Coeff of Javier 17 H (11.0-15.0) % Plt Count 361 (150-400) K/uL MPV 10.40 (7.40-12.00) fL Neut % (Auto) (48.0-80.0) % Lymph % (Auto) (16.0-40.0) % [place] % (Auto) (0.0-15.0) % Eos % (Auto) (0.0-7.0) % Baso % (Auto) (0.0-1.5) % Neut # (Auto) (1.4-5.7) K/uL Lymph # (Auto) (0.6-2.4) K/uL [place] # (Auto) (0.0-0.8) K/uL Eos # (Auto) (0.0-0.7) K/uL Baso # (Auto) (0.0-0.1) K/uL Nucleated RBC % 0.0 /100WBC Nucleated RBCs # 0 K/uL INR Sodium (136-148) mmol/L Potassium (3.5-5.1) mmol/L Chloride (98-107) mmol/L Carbon Dioxide (21.0-32.0) mmol/L BUN (7.0-18.0) mg/dL Creatinine (0.8-1.3) mg/dL Est Cr Clr Drug Dosing mL/min Estimated GFR (MDRD) ml/min Glucose (74-106) mg/dL Calcium (8.5-10.1) mg/dL Total Bilirubin (0.2-1.0) mg/dL AST (15-37) IU/L ALT (14-63) IU/L Alkaline Phosphatase (46-116) U/L Troponin I < 0.050 (0.000-0.056) ng/mL Total Protein (6.4-8.2) g/dL Albumin (3.4-5.0) g/dL Globulin (2.0-3.5) g/dL Albumin/Globulin Ratio (1.3-2.8) Amylase (25-115) U/L Lipase (73-393) U/L H. pylori IgG Antibody POSITIVE H (NEG) 09/01/17 09/01/17 Range/Units 05:27 05:27 WBC (4.0-11.0) K/uL RBC (4.50-5.90) M/uL Hgb (13.0-17.0) g/dL Hct (38.0-50.0) % MCV (80.0-98.0) fL MCH (27.0-32.0) pg MCHC (31.0-37.0) g/dL RDW Std Deviation (28.0-62.0) fl RDW Coeff of Javier (11.0-15.0) % Plt Count (150-400) K/uL MPV (7.40-12.00) fL Neut % (Auto) (48.0-80.0) % Lymph % (Auto) (16.0-40.0) % [place] % (Auto) (0.0-15.0) % Eos % (Auto) (0.0-7.0) % Baso % (Auto) (0.0-1.5) % Neut # (Auto) (1.4-5.7) K/uL Lymph # (Auto) (0.6-2.4) K/uL [place] # (Auto) (0.0-0.8) K/uL Eos # (Auto) (0.0-0.7) K/uL Baso # (Auto) (0.0-0.1) K/uL Nucleated RBC % /100WBC Nucleated RBCs # K/uL INR Sodium 136 (136-148) mmol/L Potassium 4.6 (3.5-5.1) mmol/L Chloride 100 (98-107) mmol/L Carbon Dioxide 31.4 (21.0-32.0) mmol/L BUN 11 (7.0-18.0) mg/dL Creatinine 1.3 (0.8-1.3) mg/dL Est Cr Clr Drug Dosing 81.25 mL/min Estimated GFR (MDRD) 58.4 ml/min Glucose 148 H (74-106) mg/dL Calcium 9.2 (8.5-10.1) mg/dL Total Bilirubin 0.8 (0.2-1.0) mg/dL AST 26 (15-37) IU/L ALT 53 (14-63) IU/L Alkaline Phosphatase 101 (46-116) U/L Troponin I < 0.050 (0.000-0.056) ng/mL Total Protein 7.4 (6.4-8.2) g/dL Albumin 3.3 L (3.4-5.0) g/dL Globulin 4.1 H (2.0-3.5) g/dL Albumin/Globulin Ratio 0.8 L (1.3-2.8) Amylase (25-115) U/L Lipase (73-393) U/L H. pylori IgG Antibody (NEG) Med Orders - Current: Current Medications Hydromorphone HCl (Dilaudid) 1 mg IVPUSH Q2H PRN PRN Reason: Pain Last Admin: 09/01/17 07:46 Dose: 1 mg Lactated Ringer's (Ringers, Lactated) 1,000 mls @ 150 mls/hr IV ASDIRECTED [facility] Last Admin: 09/01/17 09:19 Dose: 150 mls/hr Piperacillin Sod/Tazobactam (Sod 3.375 gm/ Sodium Chloride) 50 mls @ 100 mls/ hr IV Q6H [facility] Last Admin: 09/01/17 05:33 Dose: 100 mls/hr Ondansetron HCl (Zofran) 4 mg IVPUSH Q4H PRN PRN Reason: Nausea Pantoprazole Sodium (Protonix Iv) 40 mg IVPUSH Q24H [facility] Last Admin: 08/31/17 22:03 Dose: 40 mg Sodium Chloride (Saline Flush) 10 ml FLUSH ASDIRECTED PRN PRN Reason: Keep Vein Open Last Admin: 08/31/17 15:00 Dose: 10 ml Sodium Chloride (Saline Flush) 2.5 ml FLUSH ASDIRECTED PRN PRN Reason: Keep Vein Open Last Admin: 08/31/17 15:00 Dose: 2.5 ml Discontinued Medications Aspirin (Aspirin) 324 mg PO ONETIME ONE Stop: 08/31/17 14:51 Last Admin: 08/31/17 15:00 Dose: 324 mg Hydromorphone HCl (Dilaudid) 1 mg IVPUSH ONETIME ONE Stop: 08/31/17 18:41 Last Admin: 08/31/17 18:46 Dose: 1 mg Piperacillin Sod/Tazobactam (Sod 4.5 gm/ Sodium Chloride) 100 mls @ 100 mls/hr IV ONETIME ONE Stop: 08/31/17 19:20 Last Admin: 08/31/17 18:46 Dose: 100 mls/hr Iopamidol (Isovue Multipack-370 (76%)) 75 ml IVPUSH ONETIME STA Stop: 08/31/17 17:49 Last Admin: 08/31/17 17:49 Dose: 75 ml Morphine Sulfate (Morphine) 4 mg IVPUSH ONETIME ONE Stop: 08/31/17 14:53 Last Admin: 08/31/17 15:02 Dose: 4 mg Morphine Sulfate (Morphine) 4 mg IVPUSH ONETIME ONE Stop: 08/31/17 16:17 Last Admin: 08/31/17 16:31 Dose: 4 mg Morphine Sulfate (Morphine) Confirm Administered Dose 2 mg .ROUTE .STK-MED ONE Stop: 08/31/17 16:31 Last Admin: 08/31/17 18:33 Dose: Not Given Nitroglycerin (Nitrostat) 0.4 mg SL ONETIME ONE Stop: 08/31/17 14:51 Last Admin: 08/31/17 15:01 Dose: 0.4 mg - Exam General: Alert, Oriented, Cooperative, Mild Distress HEENT: Pupils Equal, Pupils Reactive, EOMI. No: Scleral Icterus Neck: Supple Lungs: Clear to Auscultation, Normal Respiratory Effort Cardiovascular: Regular Rate, Regular Rhythm. No: Tachycardia GI/Abdominal Exam: Normal Bowel Sounds, Soft. No: Guarding, Rigid, Rebound, Tender (epigastritum and RUQ), Mass (Male) Exam: No Hernia Extremities: Normal Inspection, Non-Tender Skin: Warm, Dry, Intact Neurological: No New Focal Deficit Psy/Mental Status: Normal Affect, Normal Mood Consult PN Assessment/Plan Procedures: Procedures ASSAY OF AMYLASE (05/20/16) ASSAY OF BLOOD/URIC ACID (02/08/17) ASSAY OF CK (CPK) (05/20/16) ASSAY OF LIPASE (05/20/16) ASSAY OF TROPONIN QUANT (05/20/16) C-REACTIVE PROTEIN (05/11/14) CHEST X-RAY 1 VIEW FRONTAL (05/20/16) COMPLETE CBC W/AUTO DIFF WBC (05/20/16) COMPREHEN METABOLIC PANEL (02/08/17) CREATINE MB FRACTION (05/20/16) CT HEAD/BRAIN W/O DYE (07/26/14) DIAGNOSTIC COLONOSCOPY (11/21/15) ELECTROCARDIOGRAM TRACING (05/20/16) EMERGENCY DEPT VISIT (05/20/16) EMERGENCY DEPT VISIT (07/26/14) GLYCOSYLATED HEMOGLOBIN TEST (02/08/17) HEPATOBILIARY SYSTEM IMAGING (05/22/16) LIPID PANEL (02/08/17) MEDICAL NUTRITION INDIV IN (05/20/16) RBC SED RATE AUTOMATED (05/11/14) ROUTINE VENIPUNCTURE (02/08/17) THER/PROPH/DIAG INJ IV PUSH (05/20/16) THER/PROPH/DIAG INJ SC/IM (05/20/16) TX/PRO/DX INJ NEW DRUG ADDON (05/20/16) UR ALBUMIN SEMIQUANTITATIVE (11/26/15) URINALYSIS AUTO W/SCOPE (02/08/17) URINE CULTURE/COLONY COUNT (02/08/17) US EXAM ABDOM COMPLETE (05/20/16) US EXAM SCROTUM (01/30/15) VASCULAR STUDY (01/30/15) (1) Acute acalculous cholecystitis SNOMED Code(s): 67887652 Code(s): K81.0 - ACUTE CHOLECYSTITIS Priority: High Current Visit: Yes (2) Epigastric abdominal pain SNOMED Code(s): 17464214 Code(s): R10.13 - EPIGASTRIC PAIN Priority: High Current Visit: Yes (3) Leukocytosis SNOMED Code(s): 969676775, 027374213 Code(s): D72.829 - ELEVATED WHITE BLOOD CELL COUNT, UNSPECIFIED Priority: High Current Visit: Yes Qualifiers: Leukocytosis type: unspecified Qualified Code(s): D72.829 - Elevated white blood cell count, unspecified (4) Atypical chest pain SNOMED Code(s): 535321389 Code(s): R07.89 - OTHER CHEST PAIN Priority: Medium Current Visit: Yes (5) RUQ abdominal pain SNOMED Code(s): 636488792 Code(s): R10.11 - RIGHT UPPER QUADRANT PAIN Priority: Medium Current Visit: Yes (6) Borderline diabetes mellitus SNOMED Code(s): 183082076 Code(s): R73.03 - PREDIABETES Priority: Medium Current Visit: Yes (7) Obesity, morbid, BMI 40.0-49.9 SNOMED Code(s): 591440779, 650624454 Code(s): E66.01 - MORBID (SEVERE) OBESITY DUE TO EXCESS CALORIES Priority: Medium Current Visit: Yes Problem List Initiated/Reviewed/Updated: Yes Plan: No new symptoms. Note WBC went up today, despite antibiotics. Rates pain a "7". Had been 3 hours since analgesics. RECOMMEND: Patients' BMI and HEIDY preclude safe surgical intervention here. We do not have bariatric instruments. If his WBC continues to go up, he may transfer to a larger facility for either urgent cholecystectomy or even possibly cholecystostomy by IR.
--- NOTE | 2017-09-01 13:15 | CT ---
EXAM DATE: 08/31/17 PATIENT'S AGE: 52 Patient: BRENT RAMIREZ Facility: [place], [place] Site . Site : [id number] Study: CT Abdomen/Pelvis [id number]/29/2018 5:21:44 PM Ordering Physician: Patricia Mckeon Final Report: INDICATION: Abdominal pain TECHNIQUE: CT abdomen and pelvis with 75 cc Isovue 370 contrast. COMPARISON: None FINDINGS: Lower chest: Unremarkable. Liver: Unremarkable. Spleen: Unremarkable. Pancreas: Unremarkable. Gallbladder and bile ducts: There is fat stranding around the gallbladder. No gallstone identified no intrahepatic or extrahepatic biliary ductal dilatation. Adrenal glands: Unremarkable. Kidneys: Unremarkable. No kidney or ureteral stones and no hydronephrosis. GI tract: Minimal colonic diverticulosis. Appendix is normal. Vascular structures: Unremarkable. Lymph nodes: Unremarkable. Miscellaneous: Unremarkable. No free air or significant free fluid. Pelvic Organs: Unremarkable. Bones: Unremarkable for age. IMPRESSION: 1. Findings highly concerning for acute cholecystitis. Recommend right upper quadrant ultrasound for further evaluation. 2. Minimal colonic diverticulosis. Please note that all CT scans at this facility use dose modulation, iterative reconstruction, and/or weight-based dosing when appropriate to reduce radiation dose to as low as reasonably achievable. Dictated by Gifty Caal MD @ Aug 31 2017 6:10PM (Electronic Signature) Report Signed by Proxy. [facility]
--- NOTE | 2017-09-01 15:18 | PCM.PN ---
- General Info Date of Service: 09/01/17 Admission Dx/Problem (Free Text): Acalculous cholecystitis. Hx of gastric ulcers. Subjective Update: No overnight events. Abdominal pain controlled. No fever, nausea, vomiting, diarrhea, melena, bloody stool Functional Status: Reports: Pain Controlled - Review of Systems General: Reports: No Symptoms HEENT: Reports: No Symptoms Pulmonary: Reports: No Symptoms Cardiovascular: Reports: No Symptoms Gastrointestinal: Reports: Abdominal Pain Genitourinary: Reports: No Symptoms Musculoskeletal: Reports: No Symptoms Skin: Reports: No Symptoms Neurological: Reports: No Symptoms Psychiatric: Reports: No Symptoms - Patient Data Vitals - Most Recent: Last Vital Signs Temp 37.4 C 09/01/17 12:00 Pulse 91 09/01/17 12:00 Resp 20 09/01/17 12:00 BP 156/94 H 09/01/17 12:00 Pulse Ox 95 09/01/17 12:00 Weight - Most Recent: 174.134 kg I&O - Last 24 Hours: Intake & Output 09/01/17 09/01/17 09/01/17 06:59 14:59 22:59 Intake Total 1050 1727 Output Total 575 1350 Balance 475 377 Lab Results Last 24 Hours: Laboratory Results - last 24 hr 08/31/17 08/31/17 08/31/17 Range/Units 14:55 14:55 14:55 WBC (4.0-11.0) K/uL RBC (4.50-5.90) M/uL Hgb (13.0-17.0) g/dL Hct (38.0-50.0) % MCV (80.0-98.0) fL MCH (27.0-32.0) pg MCHC (31.0-37.0) g/dL RDW Std Deviation (28.0-62.0) fl RDW Coeff of Javier (11.0-15.0) % Plt Count (150-400) K/uL MPV (7.40-12.00) fL Nucleated RBC % /100WBC Nucleated RBCs # K/uL INR 1.01 Sodium 137 (136-148) mmol/L Potassium 4.2 (3.5-5.1) mmol/L Chloride 101 (98-107) mmol/L Carbon Dioxide 25.6 (21.0-32.0) mmol/L BUN 13 (7.0-18.0) mg/dL Creatinine 1.4 H (0.8-1.3) mg/dL Est Cr Clr Drug Dosing 73.39 mL/min Estimated GFR (MDRD) 53.6 ml/min Glucose 172 H (74-106) mg/dL Calcium 9.2 (8.5-10.1) mg/dL Total Bilirubin 0.4 (0.2-1.0) mg/dL AST 33 (15-37) IU/L ALT 53 (14-63) IU/L Alkaline Phosphatase 106 (46-116) U/L Troponin I < 0.050 (0.000-0.056) ng/mL Total Protein 7.7 (6.4-8.2) g/dL Albumin 3.5 (3.4-5.0) g/dL Globulin 4.2 H (2.0-3.5) g/dL Albumin/Globulin Ratio 0.8 L (1.3-2.8) Amylase 42 (25-115) U/L Lipase 145 (73-393) U/L H. pylori IgG Antibody POSITIVE H (NEG) 09/01/17 09/01/17 09/01/17 Range/Units 00:19 05:27 05:27 WBC 23.32 H (4.0-11.0) K/uL RBC 5.75 (4.50-5.90) M/uL Hgb 12.9 L (13.0-17.0) g/dL Hct 41.7 (38.0-50.0) % MCV 72.5 L (80.0-98.0) fL MCH 22.4 L (27.0-32.0) pg MCHC 30.9 L (31.0-37.0) g/dL RDW Std Deviation 44.5 (28.0-62.0) fl RDW Coeff of Javier 17 H (11.0-15.0) % Plt Count 361 (150-400) K/uL MPV 10.40 (7.40-12.00) fL Nucleated RBC % 0.0 /100WBC Nucleated RBCs # 0 K/uL INR Sodium 136 (136-148) mmol/L Potassium 4.6 (3.5-5.1) mmol/L Chloride 100 (98-107) mmol/L Carbon Dioxide 31.4 (21.0-32.0) mmol/L BUN 11 (7.0-18.0) mg/dL Creatinine 1.3 (0.8-1.3) mg/dL Est Cr Clr Drug Dosing 81.25 mL/min Estimated GFR (MDRD) 58.4 ml/min Glucose 148 H (74-106) mg/dL Calcium 9.2 (8.5-10.1) mg/dL Total Bilirubin 0.8 (0.2-1.0) mg/dL AST 26 (15-37) IU/L ALT 53 (14-63) IU/L Alkaline Phosphatase 101 (46-116) U/L Troponin I < 0.050 (0.000-0.056) ng/mL Total Protein 7.4 (6.4-8.2) g/dL Albumin 3.3 L (3.4-5.0) g/dL Globulin 4.1 H (2.0-3.5) g/dL Albumin/Globulin Ratio 0.8 L (1.3-2.8) Amylase (25-115) U/L Lipase (73-393) U/L H. pylori IgG Antibody (NEG) 09/01/17 Range/Units 05:27 WBC (4.0-11.0) K/uL RBC (4.50-5.90) M/uL Hgb (13.0-17.0) g/dL Hct (38.0-50.0) % MCV (80.0-98.0) fL MCH (27.0-32.0) pg MCHC (31.0-37.0) g/dL RDW Std Deviation (28.0-62.0) fl RDW Coeff of Javier (11.0-15.0) % Plt Count (150-400) K/uL MPV (7.40-12.00) fL Nucleated RBC % /100WBC Nucleated RBCs # K/uL INR Sodium (136-148) mmol/L Potassium (3.5-5.1) mmol/L Chloride (98-107) mmol/L Carbon Dioxide (21.0-32.0) mmol/L BUN (7.0-18.0) mg/dL Creatinine (0.8-1.3) mg/dL Est Cr Clr Drug Dosing mL/min Estimated GFR (MDRD) ml/min Glucose (74-106) mg/dL Calcium (8.5-10.1) mg/dL Total Bilirubin (0.2-1.0) mg/dL AST (15-37) IU/L ALT (14-63) IU/L Alkaline Phosphatase (46-116) U/L Troponin I < 0.050 (0.000-0.056) ng/mL Total Protein (6.4-8.2) g/dL Albumin (3.4-5.0) g/dL Globulin (2.0-3.5) g/dL Albumin/Globulin Ratio (1.3-2.8) Amylase (25-115) U/L Lipase (73-393) U/L H. pylori IgG Antibody (NEG) Med Orders - Current: Current Medications Hydromorphone HCl (Dilaudid) 1 mg IVPUSH Q2H PRN PRN Reason: Pain Last Admin: 09/01/17 14:23 Dose: 1 mg Lactated Ringer's (Ringers, Lactated) 1,000 mls @ 150 mls/hr IV ASDIRECTED [facility] Last Admin: 09/01/17 09:19 Dose: 150 mls/hr Piperacillin Sod/Tazobactam (Sod 3.375 gm/ Sodium Chloride) 50 mls @ 100 mls/ hr IV Q6H [facility] Last Admin: 09/01/17 11:37 Dose: 100 mls/hr Ondansetron HCl (Zofran) 4 mg IVPUSH Q4H PRN PRN Reason: Nausea Pantoprazole Sodium (Protonix Iv) 40 mg IVPUSH Q24H [facility] Last Admin: 08/31/17 22:03 Dose: 40 mg Sodium Chloride (Saline Flush) 10 ml FLUSH ASDIRECTED PRN PRN Reason: Keep Vein Open Last Admin: 08/31/17 15:00 Dose: 10 ml Sodium Chloride (Saline Flush) 2.5 ml FLUSH ASDIRECTED PRN PRN Reason: Keep Vein Open Last Admin: 08/31/17 15:00 Dose: 2.5 ml Discontinued Medications Aspirin (Aspirin) 324 mg PO ONETIME ONE Stop: 08/31/17 14:51 Last Admin: 08/31/17 15:00 Dose: 324 mg Hydromorphone HCl (Dilaudid) 1 mg IVPUSH ONETIME ONE Stop: 08/31/17 18:41 Last Admin: 08/31/17 18:46 Dose: 1 mg Piperacillin Sod/Tazobactam (Sod 4.5 gm/ Sodium Chloride) 100 mls @ 100 mls/hr IV ONETIME ONE Stop: 08/31/17 19:20 Last Admin: 08/31/17 18:46 Dose: 100 mls/hr Iopamidol (Isovue Multipack-370 (76%)) 75 ml IVPUSH ONETIME STA Stop: 08/31/17 17:49 Last Admin: 08/31/17 17:49 Dose: 75 ml Morphine Sulfate (Morphine) 4 mg IVPUSH ONETIME ONE Stop: 08/31/17 14:53 Last Admin: 08/31/17 15:02 Dose: 4 mg Morphine Sulfate (Morphine) 4 mg IVPUSH ONETIME ONE Stop: 08/31/17 16:17 Last Admin: 08/31/17 16:31 Dose: 4 mg Morphine Sulfate (Morphine) Confirm Administered Dose 2 mg .ROUTE .STK-MED ONE Stop: 08/31/17 16:31 Last Admin: 08/31/17 18:33 Dose: Not Given Nitroglycerin (Nitrostat) 0.4 mg SL ONETIME ONE Stop: 08/31/17 14:51 Last Admin: 08/31/17 15:01 Dose: 0.4 mg - Exam General: Alert, Oriented, Cooperative, No Acute Distress HEENT: Pupils Equal, Pupils Reactive, EOMI, Mucous Membr. Moist/[place] Neck: Supple Lungs: Clear to Auscultation, Normal Respiratory Effort Cardiovascular: Regular Rate, Regular Rhythm GI/Abdominal Exam: Normal Bowel Sounds, Soft, Non-Tender Extremities: Normal Inspection, No Pedal Edema, Normal Capillary Refill Skin: Intact Neurological: No New Focal Deficit Psy/Mental Status: Alert, Normal Affect, Normal Mood - Problem List Review Problem List Initiated/Reviewed/Updated: Yes - Plan Plan:: 52 yo male admitted with acute cholecystitis. We will treat zoysn and IV fluids. Dr. Coyne has been consulted. We will also place on PPI as gastric ulcer is on differential. #Acute Cholecystitis, symptoms improving #Leukocytosis, worsening -continue Zosyn -continue Protonix BID -general surgery on case and rec's patient high risk for surgery her therefore continue monitoring and if WBC cnt continues to elevate then may consider transfer for cholecystectomy
[2017-09-01] MEDS ORDERED: oxyCODONE 5 MG Tab PO ONE (18:31)
[2017-09-01] MEDS: Pantoprazole 40 MG Vial IVPUSH SCH (22:40)
[2017-09-02] MEDS ORDERED: oxyCODONE 5 MG Tab PO ONE
[2017-09-02] MEDS: HYDROmorphone 1 MG/ML Syringe IVPUSH PRN ×4 (03:11→12:11)
[2017-09-02] MEDS: Piperacillin/Tazobactam 3.375 GM in Sodium Chloride 0.9% 50 ML IV SCH ×2 (05:44→12:15)
[2017-09-02] MEDS: Lactated Ringers 1,000 ML IV SCH (07:59)
--- NOTE | 2017-09-02 10:10 | PCM.PN ---
- General Info Date of Service: 09/02/17 Admission Dx/Problem (Free Text): Admission Diagnosis/Problem Admission Diagnosis/Problem Abdominal pain Subjective Update: Patients abdominal pain seem to be worsening. He is requiring Dilaudid every 2- 3 hours and with it pain is 5/10 but can increase to 7/10. No fever, nausea, vomiting, diarrhea, melena, bloody stool - Review of Systems General: Reports: No Symptoms HEENT: Reports: No Symptoms Pulmonary: Reports: No Symptoms Cardiovascular: Reports: No Symptoms Gastrointestinal: Reports: Abdominal Pain. Denies: Diarrhea, Hematochezia, Melena, Vomiting Genitourinary: Reports: No Symptoms Musculoskeletal: Reports: No Symptoms Skin: Reports: No Symptoms Neurological: Reports: No Symptoms Psychiatric: Reports: No Symptoms - Patient Data Vitals - Most Recent: Last Vital Signs Temp 37.4 C 09/02/17 08:00 Pulse 105 H 09/02/17 08:00 Resp 18 09/02/17 08:00 BP 147/78 H 09/02/17 08:00 Pulse Ox 93 L 09/02/17 08:00 Weight - Most Recent: 174.134 kg I&O - Last 24 Hours: Intake & Output 09/01/17 09/02/17 09/02/17 22:59 06:59 14:59 Intake Total 526 2070 Output Total 600 1375 380 Balance -74 695 -380 Lab Results Last 24 Hours: Laboratory Results - last 24 hr 09/02/17 09/02/17 Range/Units 05:40 05:40 WBC 29.78 H (4.0-11.0) K/uL RBC 5.22 (4.50-5.90) M/uL Hgb 11.9 L (13.0-17.0) g/dL Hct 37.9 L (38.0-50.0) % MCV 72.6 L (80.0-98.0) fL MCH 22.8 L (27.0-32.0) pg MCHC 31.4 (31.0-37.0) g/dL RDW Std Deviation 44.3 (28.0-62.0) fl RDW Coeff of Javier 17 H (11.0-15.0) % Plt Count 302 (150-400) K/uL MPV 10.00 (7.40-12.00) fL Add Manual Diff YES Neutrophils % (Manual) 76 (48.0-80.0) % Band Neutrophils % 13 % Lymphocytes % (Manual) 7 L (16.0-40.0) % Monocytes % (Manual) 1 (0.0-15.0) % Eosinophils % (Manual) 3 (0.0-7.0) % Nucleated RBC % 0.0 /100WBC Absolute Seg Neuts 22.6 H (1.4-5.7) Band Neutrophils # 3.9 Lymphocytes # (Manual) 2.1 (0.6-2.4) Monocytes # (Manual) 0.3 (0.0-0.8) Eosinophils # (Manual) 0.9 H (0.0-0.7) Nucleated RBCs # 0 K/uL Sodium 133 L (136-148) mmol/L Potassium 4.6 (3.5-5.1) mmol/L Chloride 99 (98-107) mmol/L Carbon Dioxide 27.8 (21.0-32.0) mmol/L BUN 12 (7.0-18.0) mg/dL Creatinine 1.4 H (0.8-1.3) mg/dL Est Cr Clr Drug Dosing 75.45 mL/min Estimated GFR (MDRD) 53.6 ml/min Glucose 106 (74-106) mg/dL Calcium 8.9 (8.5-10.1) mg/dL Total Bilirubin 1.2 H (0.2-1.0) mg/dL AST 20 (15-37) IU/L ALT 40 (14-63) IU/L Alkaline Phosphatase 84 (46-116) U/L Total Protein 7.0 (6.4-8.2) g/dL Albumin 2.8 L (3.4-5.0) g/dL Globulin 4.2 H (2.0-3.5) g/dL Albumin/Globulin Ratio 0.7 L (1.3-2.8) Med Orders - Current: Current Medications Hydromorphone HCl (Dilaudid) 1 mg IVPUSH Q2H PRN PRN Reason: Pain Last Admin: 09/02/17 08:04 Dose: 1 mg Lactated Ringer's (Ringers, Lactated) 1,000 mls @ 150 mls/hr IV ASDIRECTED JANELL Last Admin: 09/02/17 07:59 Dose: 150 mls/hr Piperacillin Sod/Tazobactam (Sod 3.375 gm/ Sodium Chloride) 50 mls @ 100 mls/ hr IV Q6H [facility] Last Admin: 09/02/17 05:44 Dose: 100 mls/hr Ondansetron HCl (Zofran) 4 mg IVPUSH Q4H PRN PRN Reason: Nausea Pantoprazole Sodium (Protonix Iv) 40 mg IVPUSH Q24H [facility] Last Admin: 09/01/17 22:40 Dose: 40 mg Sodium Chloride (Saline Flush) 10 ml FLUSH ASDIRECTED PRN PRN Reason: Keep Vein Open Last Admin: 08/31/17 15:00 Dose: 10 ml Sodium Chloride (Saline Flush) 2.5 ml FLUSH ASDIRECTED PRN PRN Reason: Keep Vein Open Last Admin: 08/31/17 15:00 Dose: 2.5 ml Discontinued Medications Aspirin (Aspirin) 324 mg PO ONETIME ONE Stop: 08/31/17 14:51 Last Admin: 08/31/17 15:00 Dose: 324 mg Hydromorphone HCl (Dilaudid) 1 mg IVPUSH ONETIME ONE Stop: 08/31/17 18:41 Last Admin: 08/31/17 18:46 Dose: 1 mg Piperacillin Sod/Tazobactam (Sod 4.5 gm/ Sodium Chloride) 100 mls @ 100 mls/hr IV ONETIME ONE Stop: 08/31/17 19:20 Last Admin: 08/31/17 18:46 Dose: 100 mls/hr Iopamidol (Isovue Multipack-370 (76%)) 75 ml IVPUSH ONETIME STA Stop: 08/31/17 17:49 Last Admin: 08/31/17 17:49 Dose: 75 ml Morphine Sulfate (Morphine) 4 mg IVPUSH ONETIME ONE Stop: 08/31/17 14:53 Last Admin: 08/31/17 15:02 Dose: 4 mg Morphine Sulfate (Morphine) 4 mg IVPUSH ONETIME ONE Stop: 08/31/17 16:17 Last Admin: 08/31/17 16:31 Dose: 4 mg Morphine Sulfate (Morphine) Confirm Administered Dose 2 mg .ROUTE .STK-MED ONE Stop: 08/31/17 16:31 Last Admin: 08/31/17 18:33 Dose: Not Given Nitroglycerin (Nitrostat) 0.4 mg SL ONETIME ONE Stop: 08/31/17 14:51 Last Admin: 08/31/17 15:01 Dose: 0.4 mg Oxycodone HCl (Oxycodone) 10 mg PO ONETIME ONE Stop: 09/01/17 18:32 Last Admin: 09/01/17 18:36 Dose: 10 mg Oxycodone HCl (Oxycodone) 10 mg PO ONETIME ONE Stop: 09/02/17 00:01 Last Admin: 09/01/17 23:50 Dose: 10 mg - Exam General: Alert, Oriented, Cooperative, Moderate Distress HEENT: Pupils Equal, Pupils Reactive Neck: Supple Lungs: Clear to Auscultation, Normal Respiratory Effort Cardiovascular: Regular Rate, Regular Rhythm GI/Abdominal Exam: Normal Bowel Sounds, Non-Tender. No: Rigid, Rebound Back Exam: Normal Inspection Extremities: Normal Inspection, No Pedal Edema Skin: Warm, Dry, Intact Neurological: No New Focal Deficit Psy/Mental Status: Alert, Normal Affect, Normal Mood - Problem List Review Problem List Initiated/Reviewed/Updated: Yes - My Orders Last 24 Hours: My Active Orders 09/02/17 09:11 Cholescintigraphy [NM] Stat 09/02/17 09:20 CULTURE BLOOD [BC] Stat CULTURE BLOOD [BC] Stat Blood Culture x2 Reflex Set [OM.PC] Stat 09/02/17 Breakfast NPO After Midnight [Nothing per Oral After Midnight Diet] [DIET] - Plan Plan:: 52 yo male with history of chronic cholecystitis admitted for epigastric pain and leukocytosis presumed secondary to acute on chronic cholecystitis #Epigastric Pain, presumed secondary to Acute on Chronic Cholecystitis, worsening #Leukocytosis, worsening #Hx Chronic Cholecystitis #Morbid Obesity, 172 Kg, BMI 48 -on Zosyn -WBC count 18k at admission, currently 29k -epigastric pain 5-7/10 on Dilaudid 1 mg Q2H -afebrile, vitals stable -CT from current admission suggestive of Acute Cholecystitis -US RUQ from current admission negative with CBD 4 mm -HIDA scan done May 2016 reveals Chronic Cholecystitis -general surgery on case and due to patient morbid obesity he is high risk for surgery here so recommend transfer due to rising WBC count Plan: -contacted [facility], spoke with general surgeon, and they recommend doing HIDA to r/o acalculous cholecystitis and if negative then low chance of GB etiology of pain and leukocytosis -HIDA scan ordered -blood cultures obtained #H.Pylori Ag Positive #Hx Gastric ulcer -Hb stable, patient denies recent/current nausea, vomiting, hematemasis, melena -continue Protonix BID
--- NOTE | 2017-09-02 11:48 | PCM.DCSUM1 ---
Discharge Summary - Hospital Course Free Text/Narrative:: 52 yo male with history of chronic cholecystitis admitted for epigastric pain and leukocytosis presumed secondary to acute on chronic cholecystitis. Dr. Coyne from General surgery on case and due to patient morbid obesity he is high risk for surgery here so recommended transfer due to rising WBC count. Dr. Coyne arranged for transfer of patient. Patient was accepted by Dr. Chapman Hospitalist. He will be transferred via ambulance. Discharge Diagnosis #Epigastric Pain, presumed secondary to Acute on Chronic Cholecystitis, worsening #Leukocytosis, worsening #Hx Chronic Cholecystitis #Morbid Obesity, 172 Kg, BMI 48 -on Zosyn since admission & Vanco started today -WBC count 18k at admission, currently 29k -epigastric pain 5-7/10 on Dilaudid 1 mg Q2H -afebrile, vitals stable -CT from current admission suggestive of Acute Cholecystitis -US RUQ from current admission negative with CBD 4 mm -HIDA scan done May 2016 reveals Chronic Cholecystitis -general surgery on case and due to patient morbid obesity he is high risk for surgery here so recommend transfer due to rising WBC count Plan: -Dr. Coyne General Surgery arranged for transfer of patient. Patient was accepted by Dr. Chapman Hospitalist. He will be transferred via ambulance. #H.Pylori Ag Positive #Hx Gastric ulcer -Hb stable, patient denies recent/current nausea, vomiting, hematemasis, melena -on Protonix BID - Discharge Data Discharge Date: 09/02/17 Discharge Disposition: DC/Tfer to Acute Hospital 02 Condition: Stable - Patient Summary/Data Consults: Consultations 08/31/17 18:22 Consult to Physician [CONS] Stat - Discharge Plan Home Medications: Home Meds Allopurinol [Zyloprim] 300 mg PO DAILY 07/26/14 [History] Aspirin [Children's Aspirin] 2 tab PO DAILY 07/26/14 [History] Naproxen Sodium [Aleve] 220 mg PO ASDIRECTED PRN 07/26/14 [History] DULoxetine [Cymbalta] 60 mg PO DAILY 08/31/17 [History] buPROPion [buPROPion XL] 150 mg PO DAILY 08/31/17 [History] Forms: ED Department Discharge Referrals: PCP,None [Primary Care Provider] - - Discharge Summary/Plan Comment Discharge Summary/Plan Comment: Dr. Coyne General Surgery arranged for transfer of patient. Patient was accepted by Dr. Chapman Hospitalist. He will be transferred via ambulance. - Patient Data Vitals - Most Recent: Last Vital Signs Temp 37.4 C 09/02/17 08:00 Pulse 105 H 09/02/17 08:00 Resp 18 09/02/17 08:00 BP 147/78 H 09/02/17 08:00 Pulse Ox 93 L 09/02/17 08:00 Weight - Most Recent: 174.134 kg I&O - Last 24 hours: Intake & Output 09/01/17 09/02/17 09/02/17 22:59 06:59 14:59 Intake Total 526 2070 Output Total 600 1375 380 Balance -74 695 -380 Lab Results - Last 24 hrs: Laboratory Results - last 24 hr 09/02/17 09/02/17 Range/Units 05:40 05:40 WBC 29.78 H (4.0-11.0) K/uL RBC 5.22 (4.50-5.90) M/uL Hgb 11.9 L (13.0-17.0) g/dL Hct 37.9 L (38.0-50.0) % MCV 72.6 L (80.0-98.0) fL MCH 22.8 L (27.0-32.0) pg MCHC 31.4 (31.0-37.0) g/dL RDW Std Deviation 44.3 (28.0-62.0) fl RDW Coeff of Javier 17 H (11.0-15.0) % Plt Count 302 (150-400) K/uL MPV 10.00 (7.40-12.00) fL Add Manual Diff YES Neutrophils % (Manual) 76 (48.0-80.0) % Band Neutrophils % 13 % Lymphocytes % (Manual) 7 L (16.0-40.0) % Monocytes % (Manual) 1 (0.0-15.0) % Eosinophils % (Manual) 3 (0.0-7.0) % Nucleated RBC % 0.0 /100WBC Absolute Seg Neuts 22.6 H (1.4-5.7) Band Neutrophils # 3.9 Lymphocytes # (Manual) 2.1 (0.6-2.4) Monocytes # (Manual) 0.3 (0.0-0.8) Eosinophils # (Manual) 0.9 H (0.0-0.7) Nucleated RBCs # 0 K/uL Sodium 133 L (136-148) mmol/L Potassium 4.6 (3.5-5.1) mmol/L Chloride 99 (98-107) mmol/L Carbon Dioxide 27.8 (21.0-32.0) mmol/L BUN 12 (7.0-18.0) mg/dL Creatinine 1.4 H (0.8-1.3) mg/dL Est Cr Clr Drug Dosing 75.45 mL/min Estimated GFR (MDRD) 53.6 ml/min Glucose 106 (74-106) mg/dL Calcium 8.9 (8.5-10.1) mg/dL Total Bilirubin 1.2 H (0.2-1.0) mg/dL AST 20 (15-37) IU/L ALT 40 (14-63) IU/L Alkaline Phosphatase 84 (46-116) U/L Total Protein 7.0 (6.4-8.2) g/dL Albumin 2.8 L (3.4-5.0) g/dL Globulin 4.2 H (2.0-3.5) g/dL Albumin/Globulin Ratio 0.7 L (1.3-2.8) Med Orders - Current: Current Medications Hydromorphone HCl (Dilaudid) 1 mg IVPUSH Q2H PRN PRN Reason: Pain Last Admin: 09/02/17 08:04 Dose: 1 mg Lactated Ringer's (Ringers, Lactated) 1,000 mls @ 150 mls/hr IV ASDIRECTED [facility] Last Admin: 09/02/17 07:59 Dose: 150 mls/hr Piperacillin Sod/Tazobactam (Sod 3.375 gm/ Sodium Chloride) 50 mls @ 100 mls/ hr IV Q6H [facility] Last Admin: 09/02/17 05:44 Dose: 100 mls/hr Vancomycin HCl 2 gm/ Sodium (Chloride) 500 mls @ 250 mls/hr IV Q12H [facility] Ondansetron HCl (Zofran) 4 mg IVPUSH Q4H PRN PRN Reason: Nausea Pantoprazole Sodium (Protonix Iv) 40 mg IVPUSH Q24H [facility] Last Admin: 09/01/17 22:40 Dose: 40 mg Sodium Chloride (Saline Flush) 10 ml FLUSH ASDIRECTED PRN PRN Reason: Keep Vein Open Last Admin: 08/31/17 15:00 Dose: 10 ml Sodium Chloride (Saline Flush) 2.5 ml FLUSH ASDIRECTED PRN PRN Reason: Keep Vein Open Last Admin: 08/31/17 15:00 Dose: 2.5 ml Vancomycin HCl (Pharmacy To Dose - Vancomycin) 1 dose .XX ASDIRECTED JANELL Discontinued Medications Aspirin (Aspirin) 324 mg PO ONETIME ONE Stop: 08/31/17 14:51 Last Admin: 08/31/17 15:00 Dose: 324 mg Hydromorphone HCl (Dilaudid) 1 mg IVPUSH ONETIME ONE Stop: 08/31/17 18:41 Last Admin: 08/31/17 18:46 Dose: 1 mg Piperacillin Sod/Tazobactam (Sod 4.5 gm/ Sodium Chloride) 100 mls @ 100 mls/hr IV ONETIME ONE Stop: 08/31/17 19:20 Last Admin: 08/31/17 18:46 Dose: 100 mls/hr Iopamidol (Isovue Multipack-370 (76%)) 75 ml IVPUSH ONETIME STA Stop: 08/31/17 17:49 Last Admin: 08/31/17 17:49 Dose: 75 ml Morphine Sulfate (Morphine) 4 mg IVPUSH ONETIME ONE Stop: 08/31/17 14:53 Last Admin: 08/31/17 15:02 Dose: 4 mg Morphine Sulfate (Morphine) 4 mg IVPUSH ONETIME ONE Stop: 08/31/17 16:17 Last Admin: 08/31/17 16:31 Dose: 4 mg Morphine Sulfate (Morphine) Confirm Administered Dose 2 mg .ROUTE .STK-MED ONE Stop: 08/31/17 16:31 Last Admin: 08/31/17 18:33 Dose: Not Given Nitroglycerin (Nitrostat) 0.4 mg SL ONETIME ONE Stop: 08/31/17 14:51 Last Admin: 08/31/17 15:01 Dose: 0.4 mg Oxycodone HCl (Oxycodone) 10 mg PO ONETIME ONE Stop: 09/01/17 18:32 Last Admin: 09/01/17 18:36 Dose: 10 mg Oxycodone HCl (Oxycodone) 10 mg PO ONETIME ONE Stop: 09/02/17 00:01 Last Admin: 09/01/17 23:50 Dose: 10 mg
[2017-09-02] MEDS ORDERED: Vancomycin 2 GM in Sodium Chloride 0.9% 500 ML IV SCH (12:00)
[2017-09-02 12:19] VITALS: BP 140/80
--- NOTE | 2017-09-02 13:23 | PCM.SN ---
- Free Text/Narrative Note: Briefly spoke to Dr. Chapman to clarify situation. Unable to speak directly to Dr. Mercer as he was in surgery. Dr. Chapman kindly accepted patient.
== END 2017-09-02 13:12 ==
LOC: MW.ED 14:40 → MW.ICU 18:28
PROVIDERS: ADMIT Internal Medicine; ATTEND Internal Medicine
DX: K81.0 Acute cholecystitis (principal); E66.01 Morbid (severe) obesity due to excess calories; D72.829 Elevated white blood cell count, unspecified; E11.9 Type 2 diabetes mellitus without complications; G47.33 Obstructive sleep apnea (adult) (pediatric); F41.9 Anxiety disorder, unspecified; F32.9 Major depressive disorder, single episode, unspecified; Z68.42 Body mass index [BMI] 45.0-49.9, adult; Z79.899 Other long term (current) drug therapy; Z79.82 Long term (current) use of aspirin; Z91.040 Latex allergy status; Z88.1 Allergy status to other antibiotic agents; Z87.891 Personal history of nicotine dependence; Z99.89 Dependence on other enabling machines and devices
CPT/HCPCS: 36415; 71045; 71045-26; 74177; 74177-26; 76705; 76705-26; 80053; 82150; 83690; 84484; 85025; 85027; 85610; 86677; 87040; 93005; 96365; 96375; 96376; 99283; 99285-25; A9270-GY; C9113; J1170; J2270; J2543; J3370; J7030; J7040; J7050; J7120; Q9967

== ENCOUNTER 2020-11-04 09:05 | Emergency (ER) | payer OTHER, BC ==
[2020-11-04] MEDS ORDERED: Orphenadrine 60 MG/2 ML Inj IM ONE (10:19)
[2020-11-04] MEDS ORDERED: Ketorolac 60 MG/2 ML SDV IM ONE (10:19)
[2020-11-04] MEDS ORDERED: Acetaminophen/oxyCODONE 325-5 MG Tab PO ONE (10:19)
--- NOTE | 2020-11-04 10:23 | EDM.PDOC ---
ED HPI GENERAL MEDICAL PROBLEM - General Chief Complaint: Back Pain or Injury Stated Complaint: INTENSE BACK PAIN Time Seen by Provider: 11/04/20 10:04 Source of Information: Reports: Patient History Limitations: Reports: No Limitations - History of Present Illness INITIAL COMMENTS - FREE TEXT/NARRATIVE: HISTORY AND PHYSICAL: History of present illness: Patient is a 55-year-old male, with a history of prior bulging disc, who presents emergency room today with concern of low back pain x3 to 4 days. Patient states that he was picking up 150 pound piece of steel unloading it to the back of the vehicle by himself and states that he was poor body mechanics and felt a pulling in his low back. Patient states that since then, he has a sensation similar to when he had a bulging disc and states that he has had a hard time with moving and has to go slowly due to pain. Patient states he has been taking 800 mg of ibuprofen every 4-6 hours but states he has not taken any pain medication today. Patient denies any loss or retention of bowel bladder function or saddle anesthesia. Patient denies any IV drug use or cancer diagnosis. Patient denies fever, chills, chest pain, shortness of breath, or cough. Denies headache, neck stiff ness, change in vision, syncope, or near syncope. Denies nausea, vomiting, abdominal pain, diarrhea, constipation, or dysuria. Has not noted any blood in urine or stool. Patient has been eating and drinking appropriately. Review of systems: As per history of present illness and below otherwise all systems reviewed and negative. Past medical history: As per history of present illness and as reviewed below otherwise noncontributory. Surgical history: As per history of present illness and as reviewed below otherwise noncontributory. Social history: See social history for further information Family history: As per history of present illness and as reviewed below otherwise noncontributory. Physical exam: General: Patient is alert, oriented, and in no acute distress. Patient sitting comfortably on exam table. Vitals stable and reviewed by me, HEENT: Atraumatic, normocephalic, pupils equal and reactive bilaterally, negative for conjunctival pallor or scleral icterus, mucous membranes moist, TMs normal bilaterally, throat clear, neck supple, nontender, trachea midline. No drooling or trismus noted. No meningeal signs. No hot potato voice noted. Lungs: Clear to auscultation, breath sounds equal bilaterally, chest nontender. Heart: S1S2, regular rate and rhythm without overt murmur Abdomen: Soft, nondistended, nontender. Negative for masses or hepatosplenomegaly. Negative for costovertebral tenderness. Pelvis: Stable nontender. Genitourinary: Deferred. Rectal: Deferred. Skin: Intact, warm, dry. No lesions or rashes noted. Extremities: No obvious deformity of the complete spine. No step-offs, crepitus to palpation of the complete spine. Patient does have some mild discomfort to palpation of the generalized lumbar spine and left-sided paraspinous muscle of the lumbar spine. Straight leg raise intact bilaterally. Heel/toe gait intact, patellar reflexes intact bilaterally. Patient is able to ambulate today in the ED but does have pain with range of motion of the lumbar spine. Otherwise, atraumatic, negative for cords or calf pain. Neurovascular unremarkable. Neuro: Awake, alert, oriented. Cranial nerves II through XII unremarkable. Cerebellum unremarkable. Motor and sensory unremarkable throughout. Exam nonfocal. Notes: Sinus symptoms that were prompt return to the ED thoroughly discussed with obey monahan. Discussed importance of follow-up with primary care provider. Voices understanding and is agreeable to plan of care. Denies any further questions or concerns at this time. Diagnostics: Lumbar CT w/o cont Therapeutics: Toradol, Norflex, Percocet tab 5/325 Prescription: Tramadol, diclofenac Impression: Acute low back pain Plan: 1. The medication you received today does cause drowsiness, so do not drive for the remaining day. 2. When resting please lay on a flat firm surface. Limit your mobility to prevent muscle stiffness. Get up to ambulate/move around/gentle stretching multiple times throughout the day. May alternate heat and ice to painful areas. 3. Tylenol as needed for back pain. Otherwise, take the prescribed tramadol/Flexeril and diclofenac as directed. Diclofenac as an anti- inflammatory medication so do not take any additional NSAIDs with this medication, such as naproxen, ibuprofen, or Aleve. Tramadol/Flexeril, this medication may cause drowsiness, so do not take it while driving or needing to be functioning outside of the home. 4. Follow-up with your primary care provider as discussed. Return to the ED as needed and as discussed. Definitive disposition and diagnosis as appropriate pending reevaluation and review of above. LEFT LOWER BACK Pain Score (Numeric/FACES): 10 - Related Data Allergies Allergy/AdvReac Type Severity Reaction Status Date / Time Latex, Natural Rubber Allergy Swelling Verified 11/04/20 09:53 minocycline Allergy tinnitus Verified 11/04/20 09:53 Home Meds: Home Meds Aspirin [Children's Aspirin] 2 tab PO DAILY 07/26/14 [History] Naproxen Sodium [Aleve] 220 mg PO ASDIRECTED PRN 07/26/14 [History] allopurinoL [Zyloprim] 300 mg PO DAILY 07/26/14 [History] buPROPion [buPROPion XL] 150 mg PO DAILY 08/31/17 [History] Diclofenac Sodium [Voltaren] 75 mg PO BIDMEALS PRN #15 tab.cr 11/04/20 [Rx] Gabapentin [Neurontin] 11/04/20 [History] traMADol [Ultram] 50 mg PO Q6H PRN #15 tab 11/04/20 [Rx] Past Medical History HEENT History: Reports: Other (See Below) Other HEENT History: 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 Cardiovascular History: Reports: None Respiratory History: Reports: Sleep Apnea Other Respiratory History: Former smoker, Sleep Apnea with machine Gastrointestinal History: Reports: Colon Polyp Genitourinary History: Reports: None Other Genitourinary History: Epididymitis, Left Musculoskeletal History: Reports: Fracture, Gout, RA Other Musculoskeletal History: "hx: fracture wrist as a kid" Neurological History: Reports: None Psychiatric History: Reports: Anxiety, Depression Endocrine/Metabolic History: Reports: Diabetes, Type II, Obesity/BMI 30+ Other Endocrine/Metabolic History: borderline DM-- diet control Hematologic History: Reports: None Immunologic History: Reports: None Oncologic (Cancer) History: Reports: None Dermatologic History: Reports: Other (See Below) Other Dermatologic History: Current hx: ring worm Right Thigh, topical treatment - Infectious Disease History Infectious Disease History: Reports: None - Past Surgical History Head Surgeries/Procedures: Reports: None HEENT Surgical History: Reports: None Respiratory Surgical History: Reports: None GI Surgical History: Reports: Cholecystectomy, Colonoscopy, Other (See Below) Other GI Surgeries/Procedures: colonoscopy done 2016 Musculoskeletal Surgical History: Reports: None Social & Family History - Family History Family Medical History: No Pertinent Family History HEENT: Reports: Impaired Vision Musculoskeletal: Reports: Arthritis Psychiatric: Reports: Anxiety, Depression Oncologic: Reports: Breast, Colon, Pancreatic - Tobacco Use Tobacco Use Status *Q: Current Every Day Tobacco User Years of Tobacco use: 33 Packs/Tins Daily: 0.5 - Caffeine Use Caffeine Use: Reports: None Other Caffeine Use: 3 monster energy drinks per day - Recreational Drug Use Recreational Drug Use: No - Living Situation & Occupation Living situation: Reports: with Significant Other Occupation: Employed ED ROS GENERAL - Review of Systems Review Of Systems: Comprehensive ROS is negative, except as noted in HPI. ED EXAM, GENERAL - Physical Exam Exam: See Below (see dictation) Course - Vital Signs Last Recorded V/S: Last Vital Signs Temp 98.2 F 11/04/20 10:51 Pulse 74 11/04/20 11:36 Resp 18 11/04/20 11:36 BP 128/72 11/04/20 11:36 Pulse Ox 97 11/04/20 11:36 - Orders/Labs/Meds Meds: Medications Discontinued Medications Generic Name Dose Route Start Last Admin Trade Name Freq PRN Reason Stop Dose Admin Ketorolac Tromethamine 60 mg 11/04/20 10:19 11/04/20 10:45 Ketorolac 60 Mg/2 Ml Sdv IM 11/04/20 10:20 60 mg ONETIME ONE Administration Orphenadrine Citrate 60 mg 11/04/20 10:19 11/04/20 10:46 Orphenadrine 60 Mg/2 Ml Inj IM 11/04/20 10:20 60 mg ONETIME ONE Administration Oxycodone/Acetaminophen 1 tab 11/04/20 10:19 11/04/20 10:45 Acetaminophen/Oxycodone 325-5 Mg Tab PO 11/04/20 10:20 1 tab ONETIME ONE Administration Departure - Departure Time of Disposition: 12:10 Disposition: Home, Self-Care 01 Clinical Impression: Low back pain Qualifiers: Chronicity: acute Back pain laterality: unspecified Sciatica presence: without sciatica Qualified Code(s): M54.5 - Low back pain - Discharge Information Prescriptions: traMADol [Ultram] 50 mg PO Q6H PRN #15 tab PRN Reason: Pain Diclofenac Sodium [Voltaren] 75 mg PO BIDMEALS PRN #15 tab.cr PRN Reason: Pain Instructions: Acute Back Pain, Adult Referrals: Mahi Heredia NP [Primary Care Provider] - Forms: ED Department Discharge Additional Instructions: The following information is given to patients seen in the emergency department who are being discharged to home. This information is to outline your options for follow-up care. We provide all patients seen in our emergency department with a follow-up referral. The need for follow-up, as well as the timing and circumstances, are variable depending upon the specifics of your emergency department visit. If you don't have a primary care physician on staff, we will provide you with a referral. We always advise you to contact your personal physician following an emergency department visit to inform them of the circumstance of the visit and for follow-up with them and/or the need for any referrals to a consulting specialist. The emergency department will also refer you to a specialist when appropriate. This referral assures that you have the opportunity for follow-up care with a specialist. All of these measure are taken in an effort to provide you with optimal care, which includes your follow-up. Under all circumstances we always encourage you to contact your private physician who remains a resource for coordinating your care. When calling for f ollow-up care, please make the office aware that this follow-up is from your recent emergency room visit. If for any reason you are refused follow-up, please contact the [facility] Emergency Department at and asked to speak to the emergency department charge nurse. [facility] Primary Care [address] [place] [id number] [address] 1. The medication you received today does cause drowsiness, so do not drive for the remaining day. 2. When resting please lay on a flat firm surface. Limit your mobility to prevent muscle stiffness. Get up to ambulate/move around/gentle stretching multiple times throughout the day. May alternate heat and ice to painful areas. 3. Tylenol as needed for back pain. Otherwise, take the prescribed tramadol and diclofenac as directed. Diclofenac as an anti-inflammatory medication so do not take any additional NSAIDs with this medication, such as naproxen, ibuprofen, or Aleve. Tramadol, this medication may cause drowsiness, so do not take it while driving or needing to be functioning outside of the home. 4. Follow-up with your primary care provider as discussed. Return to the ED as needed and as discussed. Sepsis Event Note (ED) - Evaluation Sepsis Screening Result: No Definite Risk - Focused Exam Vital Signs: Vital Signs Temp Pulse Resp BP Pulse Ox 11/04/20 11:36 74 18 128/72 97 11/04/20 10:51 98.2 F 82 18 131/72 97 11/04/20 09:48 98.2 F 78 18 149/83 H 98
--- NOTE | 2020-11-04 12:04 | CT ---
INDICATION: Low back pain. TECHNIQUE: Noncontrast CT images were acquired through the lumbar spine. COMPARISON: None. FINDINGS: Mild biconvex lumbar curvature. The lumbar lordosis is preserved. Mild chronic T12 and L1 vertebral body anterior wedging. No acute fracture. T12-L1: No spinal canal or neural foraminal narrowing. L1-2: Posterior disc bulging and endplate osteophytes. Mild bilateral facet arthropathy. Dezt-oj-rbvlsyyu spinal canal narrowing. No neural foraminal narrowing. L2-3: Mild retrolisthesis. Moderate disc height loss. Posterior disc bulging and endplate osteophytes. Moderate right and mild left facet arthropathy. Mild spinal canal narrowing. Moderate bilateral neural foraminal narrowing. L3-4: Jlzr-zw-wsfduhan disc height loss. Posterior disc bulging and endplate spondylitic ridging. Mild bilateral facet arthropathy. Posterior disc bulging and endplate spondylitic ridging. Mild spinal canal narrowing. Moderate right greater than left neural foraminal narrowing. L4-5: Advanced disc degeneration. Mild disc height loss. Posterior disc bulging and endplate spondylitic ridging. Advanced bilateral facet arthropathy. Mild right spinal canal narrowing. Right lateral recess narrowing. Moderately severe bilateral neural foraminal stenosis. L5-S1: Advanced disc degeneration. Posterior disc bulging and endplate spondylitic ridging. Markedly advanced bilateral facet arthropathy. No spinal canal narrowing. Qkrd-oe-yexbelqp left greater than right neural foraminal narrowing. Sacroiliac joint degenerative changes. Aortoiliac atherosclerotic calcifications. IMPRESSION: 1. No acute fracture. 2. At L3-4, moderate bilateral neural foraminal narrowing. 3. At L4-5, moderately severe bilateral neural foraminal stenosis. Advanced facet arthropathy. 4. At L5-S1, bujf-gl-rcqkcthc orri-dgdzfzb-ddeo-right neural foramina narrowing. Markedly advanced facet arthropathy. Please note that all CT scans at this facility use dose modulation, iterative reconstruction, and/or weight-based dosing when appropriate to reduce radiation dose to as low as reasonably achievable. Dictated by Jamaal Jaimes MD @ 11/04/2020 12:03:[address] Jamaal Jaimes @ Nov 04 2020 12:03PM
[2020-11-04 19:21] VITALS: BP 131/73; PULSE 78
== END 2020-11-04 12:33 | disposition home or self-care (01) ==
LOC: MW.ED 09:05
DX: M54.5 Low back pain (principal); M06.9 Rheumatoid arthritis, unspecified; E11.9 Type 2 diabetes mellitus without complications; E66.9 Obesity, unspecified; Z68.43 Body mass index [BMI] 50.0-59.9, adult; Z87.891 Personal history of nicotine dependence; Z91.040 Latex allergy status; Z88.1 Allergy status to other antibiotic agents; Z79.82 Long term (current) use of aspirin; Z79.899 Other long term (current) drug therapy
CPT/HCPCS: 72131; 96372; 99283; A9270; J1885; J2360

== ENCOUNTER 2021-02-14 06:35 | Day surgery (SDC) | payer BC ==
[~2021-02-14 06:35] MED LIST: Lactated Ringers 1,000 ML IV SCH
--- NOTE | 2021-02-14 07:19 | PCM.PREANE ---
Preanesthetic Assessment - Anesthesia/Transfusion/Family Hx Anesthesia History: Prior Anesthesia Without Reaction Family History of Anesthesia Reaction: Yes Transfusion History: No Prior Transfusion(s) - Review of Systems General: No Symptoms Pulmonary: No Symptoms Cardiovascular: No Symptoms Gastrointestinal: No Symptoms Neurological: No Symptoms Other: Reports: None, Diabetes, Depression (HEIDY compliant CPAP), Anxiety - Physical Assessment NPO Status Date: 02/13/21 NPO Status Time: 00:00 Vital Signs: Last Vital Signs Temp 36.0 C L 02/14/21 06:57 Pulse 82 02/14/21 06:57 Resp 16 02/14/21 06:57 BP 139/76 02/14/21 06:57 Pulse Ox 95 02/14/21 06:57 Height: 1.91 m Weight: 191.416 kg ASA Class: 3 Airway Class: Mallampati = 4 Dentition: Reports: Normal Dentition Thyro-Mental Finger Breadths: 3 Mouth Opening Finger Breadths: 3 ROM/Head Extension: Full Lungs: Clear to Auscultation, Normal Respiratory Effort Cardiovascular: Regular Rate, Regular Rhythm - Allergies Allergies/Adverse Reactions: Allergies Allergy/AdvReac Type Severity Reaction Status Date / Time Latex, Natural Rubber Allergy Swelling Verified 02/14/21 06:58 minocycline Allergy tinnitus Verified 02/14/21 06:58 - Blood Blood Available: No - Anesthesia Plan Pre-Op Medication Ordered: None - Acknowledgements Anesthesia Type Planned: General Anesthesia Pt an Appropriate Candidate for the Planned Anesthesia: Yes Alternatives and Risks of Anesthesia Discussed w Pt/Guardian: Yes Pt/Guardian Understands and Agrees with Anesthesia Plan: Yes PreAnesthesia Questionnaire HEENT History: Reports: Other (See Below) Other HEENT History: reading glasses Cardiovascular History: Reports: None Respiratory History: Reports: Sleep Apnea Other Respiratory History: Former smoker, presently vaps, Sleep Apnea uses CPAp Gastrointestinal History: Reports: Colon Polyp Genitourinary History: Reports: None Other Genitourinary History: Epididymitis, Left Musculoskeletal History: Reports: Fracture, Gout, RA Other Musculoskeletal History: "hx: fracture wrist as a kid" Neurological History: Reports: None Psychiatric History: Reports: Anxiety, Depression Endocrine/Metabolic History: Reports: Diabetes, Type II, Obesity/BMI 30+ Other Endocrine/Metabolic History: borderline DM-- diet control Hematologic History: Reports: None Immunologic History: Reports: None Oncologic (Cancer) History: Reports: None Dermatologic History: Reports: None - Infectious Disease History Infectious Disease History: Reports: None - Past Surgical History Head Surgeries/Procedures: Reports: None HEENT Surgical History: Reports: Other (See Below) Other HEENT Surgeries/Procedures: hx excision of occipital mass Cardiovascular Surgical History: Reports: None Respiratory Surgical History: Reports: None GI Surgical History: Reports: Cholecystectomy, Colonoscopy Male Surgical History: Reports: None Endocrine Surgical History: Reports: None Neurological Surgical History: Reports: None Musculoskeletal Surgical History: Reports: None Oncologic Surgical History: Reports: None Dermatological Surgical History: Reports: None - SUBSTANCE USE Tobacco Use Within Last Twelve Months: Vaping - HOME MEDS Home Medications: Home Meds allopurinoL [Zyloprim] 300 mg PO DAILY 07/26/14 [History] Gabapentin [Neurontin] 600 mg PO QID 11/04/20 [History] Ascorbic Acid [Vitamin C] 3,600 mg PO DAILY 02/10/21 [History] Cholecalciferol (Vitamin D3) [Vitamin D3] 10,000 units PO DAILY 02/10/21 [History] Testosterone Cypionate [Testone Cik] 1 ml IM ASDIRECTED 02/10/21 [History] Vortioxetine Hydrobromide [Trintellix] 10 mg PO DAILY 02/10/21 [History] - CURRENT (IN HOUSE) MEDS Current Meds: Current Medications Lactated Ringer's (Ringers, Lactated) 1,000 mls @ 125 mls/hr IV ASDIRECTED [facility] Last Admin: 02/14/21 07:00 Dose: 125 mls/hr Documented by:
[2021-02-14] MEDS ORDERED: Propofol 200 MG/20 ML SDV ONE (07:20)
[2021-02-14] MEDS ORDERED: Midazolam 1 MG/ML 2 ML SDV ONE ×2 (07:20→07:23)
[2021-02-14] MEDS ORDERED: fentaNYL 100 MCG/2 ML SDV ONE (07:20)
[2021-02-14] MEDS ORDERED: Ketamine 500 mg/10 ML MDV ONE (07:21)
--- NOTE | 2021-02-14 08:27 | PCM48HPAN ---
Post Anesthesia Note - EVALUATION WITHIN 48HRS OF ANESTHETIC Vital Signs in Normal Range: Yes Patient Participated in Evaluation: Yes Respiratory Function Stable: Yes Airway Patent: Yes Cardiovascular Function Stable: Yes Hydration Status Stable: Yes Pain Control Satisfactory: Yes Nausea and Vomiting Control Satisfactory: Yes Mental Status Recovered: Yes Vital Signs: Last Vital Signs Temp 96.8 F L 02/14/21 06:57 Pulse 82 02/14/21 06:57 Resp 16 02/14/21 06:57 BP 139/76 02/14/21 06:57 Pulse Ox 95 02/14/21 06:57
--- NOTE | 2021-02-14 08:27 | PCM.POSTAN ---
POST ANESTHESIA ASSESSMENT - MENTAL STATUS Mental Status: Alert, Oriented - VITAL SIGNS Vital Signs: Last Vital Signs Temp 96.8 F L 02/14/21 06:57 Pulse 82 02/14/21 06:57 Resp 16 02/14/21 06:57 BP 139/76 02/14/21 06:57 Pulse Ox 95 02/14/21 06:57 - RESPIRATORY Respiratory Status: Respiratory Rate WNL, Airway Patent, O2 Saturation Stable - CARDIOVASCULAR CV Status: Pulse Rate WNL, Blood Pressure Stable - GASTROINTESTINAL GI Status: No Symptoms - POST OP HYDRATION Hydration Status: Adequate & Stable
[2021-02-14] MEDS ORDERED: Lactated Ringers 1,000 ML IV SCH (08:30)
--- NOTE | 2021-02-14 08:32 | PCM.OPNOTE ---
- General Post-Op/Procedure Note Date of Surgery/Procedure: 02/14/21 Operative Procedure(s): Colonoscopy w/ cold rectal polypectomy Pre Op Diagnosis: Personal history of colon polyps Post-Op Diagnosis: Rectal polyp Anesthesia Technique: MAC (ASA III) Primary Surgeon: Mandeep Coyne Condition: Good Free Text/Narrative:: DICTATION [id number] CPT CODE [id number]
--- NOTE | 2021-02-14 09:56 | OR ---
SURGEON: Mandeep Coyne M.D. DATE OF PROCEDURE: 02/14/2021 OPERATION PERFORMED: Colonoscopy with cold rectal polypectomy. PRIMARY SURGEON: Mandeep Coyne M.D. ANESTHESIA: MAC. ASA CLASSIFICATION: III. PREOPERATIVE DIAGNOSIS: Personal history of colon polyps. POSTOPERATIVE DIAGNOSIS: Rectal polyp. DESCRIPTION OF PROCEDURE: The patient was taken to the endoscopy room and positioned on the endoscopy table in the left lateral decubitus position. Time-out was called for appropriate identification of the patient and procedure. Monitored anesthesia care was provided. The colonoscope was inserted into the rectum and advanced with minimal difficulty to the cecum. The cecum was identified by internal landmarks and external pressure. The colonoscope was retroflexed to visualize the ascending colon from below, then straightened, and slowly withdrawn. The cecum, ascending colon, hepatic flexure, transverse colon, splenic flexure, descending colon, and sigmoid colon showed no tumors, polyps, diverticula, or angiodysplastic changes. There was no evidence of inflammatory bowel disease. Once the colonoscope was withdrawn to the rectum, one small polyp was encountered and removed with cold biopsy forceps. The colonoscope was then retroflexed to visualize the anal orifice from above. Again, no tumors or polyps were seen, and there were no acute hemorrhoidal changes. The colonoscope was then straightened, the rectum aspirated, and colonoscope removed. The patient tolerated the procedure well and was taken to recovery room in stable condition. KADEEM / ORIN /[id number]
[2021-02-14 10:23] VITALS: BP 116/62; PULSE 74
== END 2021-02-14 09:10 | disposition home or self-care (01) ==
LOC: MW.SDS 06:35
PROVIDERS: ATTEND Surgery
DX: Z12.11 Encounter for screening for malignant neoplasm of colon (principal); K62.1 Rectal polyp; F41.9 Anxiety disorder, unspecified; E66.01 Morbid (severe) obesity due to excess calories; E11.9 Type 2 diabetes mellitus without complications; M06.9 Rheumatoid arthritis, unspecified; Z88.8 Allergy status to other drugs, medicaments and biological substances; Z91.040 Latex allergy status; Z79.899 Other long term (current) drug therapy; Z90.49 Acquired absence of other specified parts of digestive tract; Z98.890 Other specified postprocedural states; Z87.891 Personal history of nicotine dependence; Z68.43 Body mass index [BMI] 50.0-59.9, adult; Z80.0 Family history of malignant neoplasm of digestive organs
CPT/HCPCS: 45380; J2250; J2704; J7120; 00811; J3010